=== PATIENT | female | born 1945 | race African-American/Black ===

== ENCOUNTER 2017-04-21 19:05 | Inpatient (IN) ==
[2017-04-21] MEDS ORDERED: ONDANSETRON 4 MG/2 ML VIAL IV STA (19:51)
[2017-04-21] MEDS ORDERED: hydrALAZINE 20 MG/1 ML VIAL IV STA (19:59)
[2017-04-21 20:39] LABS: Basophils % 0.3 % (0.0-0.8); Eosinophils # 0.1 10*3/uL (0.0-0.87); Eosinophils % 0.4 % (0.00-10.9); Hematocrit 39.4 VOL% (35.7-47.0); Hemoglobin 13.3 GM/DL (12.0-16.0); Immature Granulocytes % 0.6 %; Immature Granulocytes Absolute 0.07 #; Lymphocytes # 3.5 10*3/uL (1.4-4.0); Lymphocytes % 28.3 % (21.3-54.2); Mean Corpuscular HGB Conc 33.8 GM/DL (32-36); Mean Corpuscular Hemoglobin 29 PG (27-34); Mean Corpuscular Volume 84.7 FL (87-102); Monocytes # 0.8 10*3/uL (0.11-0.8); Monocytes % 6.1 % (1.7-12.7); Neutrophils # 7.9 10*3/uL (1.4-7.4); Neutrophils % 64.3 % (38.7-73.9); Platelet Count 344 T/CUMM (130-400); Red Blood Count 4.65 MC/CUMM (3.8-5.5); Red Cell Distribution Width 13.2 % (9.3-17.3); White Blood Count 12.4 T/CUMM (4-12)
[2017-04-21] MEDS ORDERED: ONDANSETRON 4 MG/2 ML VIAL ONE (20:47)
[2017-04-21] MEDS ORDERED: hydrALAZINE 20 MG/1 ML VIAL ONE (20:47)
[2017-04-21 20:57] LABS: INR 0.9; PT Patient Result 9.6 SECS; Partial Thromboplastin Time 22.6 SECS (0-40)
[2017-04-21 20:58] LABS: Alanine Aminotransferase 18 U/L (13-56); Alkaline Phosphatase 180 U/L (45-117); Aspartate Amino Transferase 11 U/L (0-37); Bilirubin,Total < 0.39 MG/DL (0.2-1.0); Blood Urea Nitrogen 20 MG/DL (7-18); Calcium 9.2 MG/DL (8.5-10.1); Glucose 462 MG/DL (74-106); Osmolality,Calculated 288.4 MOS/KG (273-304); Potassium 4.4 MMOL/L (3.5-5.1); Sodium 133 MMOL/L (136-145)
[2017-04-21] MEDS ORDERED: INSULIN REGULAR 100 UNIT/ML SUBCUT STA (21:21)
[2017-04-21] MEDS ORDERED: INSULIN REGULAR 100 UNIT/ML ONE (22:33)
[2017-04-21] MEDS ORDERED: DEXTROSE 50% 25 GM/50 ML VIAL IV PRN ×2 (23:50→23:56)
[2017-04-21] MEDS ORDERED: LABETALOL 20 MG/4 ML SYRINGE IV PRN (23:50)
[2017-04-21] MEDS ORDERED: GLUCAGON 1 MG VIAL IM PRN ×2 (23:50→23:56)
[2017-04-22] MEDS ORDERED: GLUCAGON 1 MG VIAL IM PRN (01:48)
[2017-04-22] MEDS ORDERED: DEXTROSE 50% 25 GM/50 ML VIAL IV PRN (01:48)
[2017-04-22] MEDS: SODIUM CHLORIDE 0.9% 1,000 ML IV SCH ×3 (03:09→15:14)
[2017-04-22 05:30] LABS: Calcium 8.8 MG/DL (8.5-10.1); Osmolality,Calculated 287.7 MOS/KG (273-304); Potassium 4.2 MMOL/L (3.5-5.1)
[2017-04-22 05:49] LABS: Risk Ratio 4.86; VLDL CHOLESTEROL 40.6 MG/DL
[2017-04-22] MEDS: INSULIN REGULAR 100 UNIT/ML SUBCUT SCH ×4 (06:50→22:19)
[2017-04-22] MEDS: ENOXAPARIN 40 MG/0.4 ML SYRINGE SUBCUT SCH (10:31)
[2017-04-22] MEDS: ASPIRIN 325 MG TABLET PO SCH (10:31)
[2017-04-22] MEDS: INSULIN LISPRO 100 UNIT/ML SUBCUT SCH (17:09)
[2017-04-22] MEDS ORDERED: IBUPROFEN 600 MG TABLET PO PRN (19:49)
[2017-04-22] MEDS ORDERED: ATORVASTATIN 80 MG TABLET PO SCH (21:00)
[2017-04-22] MEDS ORDERED: INSULIN GLARGINE 100 UNIT/ML SUBCUT SCH (21:00)
[2017-04-23] MEDS: SODIUM CHLORIDE 0.9% 1,000 ML IV SCH ×2 (04:26→10:49)
[2017-04-23] MEDS: INSULIN REGULAR 100 UNIT/ML SUBCUT SCH ×2 (08:40→12:08)
[2017-04-23] MEDS: ENOXAPARIN 40 MG/0.4 ML SYRINGE SUBCUT SCH (09:15)
[2017-04-23] MEDS: ASPIRIN 325 MG TABLET PO SCH (09:16)
[2017-04-23] MEDS: INSULIN LISPRO 100 UNIT/ML SUBCUT SCH ×2 (09:16→11:58)
[2017-04-23 11:37] VITALS: BP 164/82
[2017-04-23] MEDS ORDERED: MAGNESIUM HYDROXIDE SUSP 30 ML UDCUP PO PRN (11:46)
[2017-04-23] MEDS ORDERED: amLODIPine 10 MG TABLET PO SCH (13:00)
== END 2017-04-23 13:56 | DRG 65 ==
LOC: N.ED 19:05 → N.EDINP 23:50 → N.TELES 04-22 00:17
PROVIDERS: ADMIT Internal Medicine; ATTEND Internal Medicine

== ENCOUNTER 2017-08-04 13:01 | Inpatient (IN) ==
[2017-08-04] MEDS ORDERED: HYDROmorphone 2 MG/1 ML VIAL IV STA (14:08)
[2017-08-04] MEDS ORDERED: ONDANSETRON 4 MG/2 ML VIAL IV STA (14:08)
[2017-08-04] MEDS ORDERED: ALUM/MAG/SIMETH/LIDO VISC 1:1 30 ML BOTTLE PO STA (14:08)
[2017-08-04] MEDS ORDERED: SODIUM CHLORIDE 0.9% 500 ML IV STA (14:08)
[2017-08-04] MEDS ORDERED: PANTOPRAZOLE 40 MG VIAL IV STA (14:08)
[2017-08-04 14:23] LABS: Basophils % 0.3 % (0.0-0.8); Eosinophils % 0.4 % (0.00-10.9); Immature Granulocytes % 0.6 %; Immature Granulocytes Absolute 0.04 #; Lymphocytes # 2.1 10*3/uL (1.4-4.0); Lymphocytes % 29.7 % (21.3-54.2); Mean Corpuscular HGB Conc 33.3 GM/DL (32-36); Mean Corpuscular Hemoglobin 29 PG (27-34); Mean Corpuscular Volume 87.8 FL (87-102); Mean Platelet Volume 9.8 FL (9.6-12.0); Monocytes # 0.6 10*3/uL (0.11-0.8); Monocytes % 8.1 % (1.7-12.7); Neutrophils # 4.3 10*3/uL (1.4-7.4); Neutrophils % 60.9 % (38.7-73.9); Platelet Count 365 T/CUMM (130-400); Red Cell Distribution Width 15.1 % (9.3-17.3); White Blood Count 7.1 T/CUMM (4-12)
[2017-08-04] MEDS ORDERED: HYDROmorphone 2 MG/1 ML VIAL ONE (14:45)
[2017-08-04] MEDS ORDERED: PANTOPRAZOLE 40 MG VIAL IV ONE (14:45)
[2017-08-04] MEDS ORDERED: ONDANSETRON 4 MG/2 ML VIAL ONE (14:45)
[2017-08-04] MEDS ORDERED: ALUM/MAG/SIMETH/LIDO VISC 1:1 30 ML BOTTLE PO ONE (14:45)
[2017-08-04 14:47] LABS: Alanine Aminotransferase 16 U/L (13-56); Albumin 3.5 G/DL (3.4-5.0); Alkaline Phosphatase 136 U/L (45-117); Amylase 40 U/L (25-115); Aspartate Amino Transferase 18 U/L (0-37); Bilirubin,Total < 0.39 MG/DL (0.2-1.0); Blood Urea Nitrogen 12 MG/DL (7-18); Calcium 8.9 MG/DL (8.5-10.1); Glucose 232 MG/DL (74-106); Osmolality,Calculated 279.8 MOS/KG (273-304); Potassium 3.7 MMOL/L (3.5-5.1); Sodium 137 MMOL/L (136-145); Total Protein 7.2 G/DL (6.4-8.3); Troponin I Only < 0.015 NG/ML (0.00-0.045)
[2017-08-04 16:39] LABS: Apearance,Urine CLEAR (Clear); Bilirubin,Urine Negative (Negative); Blood, Urine Negative (Negative); Glucose,Urine (UA) 150 mg/dL (Negative); Ketones,Urine Negative (Negative); Nitrite,Urine Negative (Negative); Protein,Urine 100 MG/DL; RBC,Urine 4 /HPF (0-4); Squamous Epithelial Cell,Urine Occasional /HPF (0-10); Urine Color Yellow (Yellow); Urine Specific Gravity 1.011 (1.001-1.035); Urine Urobilinogen < 2.0 EU/DL (0.2-1.0); WBC,Urine 7 /HPF (0-6)
[2017-08-04] MEDS ORDERED: cefTRIAXone 1,000 MG in SODIUM CHLORIDE 0.9% 100 ML IV STA (17:12)
[2017-08-04] MEDS ORDERED: cefTRIAXone 1,000 MG in SYRINGE 1 EACH IV STA (17:16)
[2017-08-04] MEDS ORDERED: cefTRIAXone 1,000 MG VIAL ONE (17:18)
[2017-08-04] MEDS ORDERED: ASPIRIN EC 325 MG TABLET PO STA (17:32)
[2017-08-04] MEDS ORDERED: ASPIRIN 325 MG TABLET ONE (17:58)
[2017-08-04] MEDS ORDERED: GLUCAGON 1 MG VIAL IM PRN (18:37)
[2017-08-04] MEDS ORDERED: DEXTROSE 50% 25 GM/50 ML VIAL IV PRN (18:37)
[2017-08-04 18:39] LABS: Lactic Acid 0.9 MMOL/L (0.4-2.0)
[2017-08-04] MEDS: SODIUM CHLORIDE 0.9% 1,000 ML IV SCH (21:00)
[2017-08-04] MEDS: INSULIN REGULAR 100 UNIT/ML SUBCUT SCH (21:14)
[2017-08-04] MEDS ORDERED: LEVOFLOXACIN INJ 100 ML IV ONE (21:32)
[2017-08-04] MEDS: LEVOFLOXACIN INJ 500 MG in PREMIX 1 EACH IV SCH (21:41)
[2017-08-04] MEDS: TOLTERODINE 2 MG TABLET PO SCH (22:15)
[2017-08-05] MEDS ORDERED: ONDANSETRON 4 MG/2 ML VIAL IV PRN (01:44)
[2017-08-05] MEDS ORDERED: PROMETHAZINE 25 MG/1 ML VIAL IM PRN (01:44)
[2017-08-05] MEDS ORDERED: ONDANSETRON 4 MG/2 ML VIAL ONE (01:50)
[2017-08-05] MEDS ORDERED: MORPHINE 10 MG/1 ML VIAL ONE ×2 (01:53→08:56)
[2017-08-05] MEDS: MORPHINE 2 MG/1 ML SYRINGE IV PRN ×2 (02:09→09:15)
[2017-08-05] MEDS ORDERED: INSULIN REGULAR 100 UNIT/ML ONE (08:57)
[2017-08-05] MEDS: TOLTERODINE 2 MG TABLET PO SCH ×2 (09:15→21:21)
[2017-08-05] MEDS: INSULIN REGULAR 100 UNIT/ML SUBCUT SCH ×4 (09:15→21:21)
[2017-08-05] MEDS ORDERED: ALPRAZolam 0.5 MG TABLET ONE (10:22)
[2017-08-05] MEDS: ALPRAZolam 0.5 MG TABLET PO PRN ×2 (10:25→21:21)
[2017-08-05] MEDS ORDERED: POLYETHYLENE GLYCOL POWDER 17 GM PACK PO PRN (10:25)
[2017-08-05] MEDS ORDERED: ALUMINUM/MAGNES/SIMETH MAX STR 30 ML UDCUP PO PRN (10:25)
[2017-08-05] MEDS: INSULIN LISPRO 100 UNIT/ML SUBCUT SCH ×2 (13:53→17:06)
[2017-08-05] MEDS: SODIUM CHLORIDE 0.9% 1,000 ML IV SCH (13:54)
[2017-08-05] MEDS: PANTOPRAZOLE 20 MG TABLET PO SCH (18:23)
[2017-08-05] MEDS: LEVOFLOXACIN INJ 500 MG in PREMIX 1 EACH IV SCH (18:23)
[2017-08-05] MEDS: ZALEPLON 5 MG CAPSULE PO SCH (21:21)
[2017-08-05] MEDS: ATORVASTATIN 80 MG TABLET PO SCH (21:21)
[2017-08-05] MEDS: INSULIN GLARGINE 100 UNIT/ML SUBCUT SCH (21:22)
[2017-08-06] MEDS: LEVOTHYROXINE 125 MCG TABLET PO SCH (08:36)
[2017-08-06] MEDS: INSULIN REGULAR 100 UNIT/ML SUBCUT SCH ×4 (08:36→22:41)
[2017-08-06] MEDS: INSULIN LISPRO 100 UNIT/ML SUBCUT SCH ×3 (08:36→16:53)
[2017-08-06] MEDS: POLYETHYLENE GLYCOL POWDER 17 GM PACK PO SCH (08:37)
[2017-08-06] MEDS: ASPIRIN 325 MG TABLET PO SCH (08:37)
[2017-08-06] MEDS: TOLTERODINE 2 MG TABLET PO SCH ×2 (08:37→21:38)
[2017-08-06] MEDS: amLODIPine 10 MG TABLET PO SCH (08:45)
[2017-08-06] MEDS: ALPRAZolam 0.5 MG TABLET PO PRN ×2 (08:47→21:38)
[2017-08-06] MEDS ORDERED: LEVOFLOXACIN 500 MG TABLET PO SCH (16:30)
[2017-08-06] MEDS: PANTOPRAZOLE 20 MG TABLET PO SCH (16:53)
[2017-08-06 17:47] LABS: Apearance,Urine CLEAR (Clear); Bilirubin,Urine Negative (Negative); Blood, Urine Negative (Negative); Glucose,Urine (UA) Negative (Negative); Ketones,Urine Negative (Negative); Mucus,Urine Occasional /LPF (Occasional); Nitrite,Urine Negative (Negative); Protein,Urine 100 MG/DL; RBC,Urine 3 /HPF (0-4); Squamous Epithelial Cell,Urine Occasional /HPF (0-10); Urine Color Yellow (Yellow); Urine Specific Gravity 1.011 (1.001-1.035); Urine Urobilinogen < 2.0 EU/DL (0.2-1.0); WBC,Urine <1 /HPF (0-6)
[2017-08-06] MEDS: ATORVASTATIN 80 MG TABLET PO SCH (21:38)
[2017-08-06] MEDS: ZALEPLON 5 MG CAPSULE PO SCH (21:38)
[2017-08-06] MEDS: INSULIN GLARGINE 100 UNIT/ML SUBCUT SCH (22:41)
[2017-08-07] MEDS: LEVOTHYROXINE 125 MCG TABLET PO SCH (06:58)
[2017-08-07] MEDS: INSULIN REGULAR 100 UNIT/ML SUBCUT SCH ×4 (08:41→21:07)
[2017-08-07] MEDS: ASPIRIN 325 MG TABLET PO SCH (10:20)
[2017-08-07] MEDS: TOLTERODINE 2 MG TABLET PO SCH (10:20)
[2017-08-07] MEDS: amLODIPine 10 MG TABLET PO SCH (10:20)
[2017-08-07] MEDS: INSULIN LISPRO 100 UNIT/ML SUBCUT SCH ×3 (10:21→16:19)
[2017-08-07] MEDS: POLYETHYLENE GLYCOL POWDER 17 GM PACK PO SCH (10:21)
[2017-08-07] MEDS: CITALOPRAM 20 MG TABLET PO SCH (10:24)
[2017-08-07] MEDS: MORPHINE 2 MG/1 ML SYRINGE IV PRN (13:30)
[2017-08-07] MEDS: PANTOPRAZOLE 20 MG TABLET PO SCH (17:31)
[2017-08-07] MEDS ORDERED: TAMSULOSIN 0.4 MG CAPSULE PO SCH (21:00)
[2017-08-07] MEDS: INSULIN GLARGINE 100 UNIT/ML SUBCUT SCH (21:07)
[2017-08-07] MEDS: ATORVASTATIN 80 MG TABLET PO SCH (21:07)
[2017-08-07] MEDS: ALPRAZolam 0.5 MG TABLET PO PRN (21:07)
[2017-08-07] MEDS: ZALEPLON 5 MG CAPSULE PO SCH (21:07)
[2017-08-08 05:28] LABS: Calcium 8.7 MG/DL (8.5-10.1); Osmolality,Calculated 278.4 MOS/KG (273-304); Potassium 3.7 MMOL/L (3.5-5.1)
[2017-08-08] MEDS: LEVOTHYROXINE 125 MCG TABLET PO SCH (06:37)
[2017-08-08] MEDS: INSULIN REGULAR 100 UNIT/ML SUBCUT SCH ×2 (09:33→12:26)
[2017-08-08] MEDS: amLODIPine 10 MG TABLET PO SCH (09:34)
[2017-08-08] MEDS: POLYETHYLENE GLYCOL POWDER 17 GM PACK PO SCH (09:34)
[2017-08-08] MEDS: INSULIN LISPRO 100 UNIT/ML SUBCUT SCH ×2 (09:34→12:25)
[2017-08-08] MEDS: ASPIRIN 325 MG TABLET PO SCH (09:34)
[2017-08-08] MEDS: CITALOPRAM 20 MG TABLET PO SCH (09:34)
[2017-08-08 12:03] VITALS: BP 153/63
[2017-08-08] MEDS ORDERED: DOCUSATE SODIUM 100 MG CAPSULE PO SCH (21:00)
== END 2017-08-08 15:15 | disposition home health service (06) | DRG 445 ==
LOC: EDBD → EDUNIT# → N.ED 13:01 → N.EDINP 17:59 → N.TELES 08-05 12:04
PROVIDERS: ADMIT Internal Medicine Cardiovascular Disease; ATTEND Internal Medicine Cardiovascular Disease

== ENCOUNTER 2017-11-28 11:35 | Inpatient (IN) ==
[2017-11-28 12:06] LABS: Basophils % 0.2 % (0.0-0.8); Eosinophils % 0.1 % (0.00-10.9); Hematocrit 37.7 VOL% (35.7-47.0); Hemoglobin 12.4 GM/DL (12.0-16.0); Immature Granulocytes % 0.4 %; Immature Granulocytes Absolute 0.04 #; Lymphocytes # 1.5 10*3/uL (1.4-4.0); Lymphocytes % 13.6 % (21.3-54.2); Mean Corpuscular HGB Conc 32.9 GM/DL (32-36); Mean Corpuscular Hemoglobin 29 PG (27-34); Mean Corpuscular Volume 88.1 FL (87-102); Mean Platelet Volume 9.2 FL (9.6-12.0); Monocytes # 0.4 10*3/uL (0.11-0.8); Monocytes % 3.8 % (1.7-12.7); Neutrophils % 81.9 % (38.7-73.9); Platelet Count 426 T/CUMM (130-400); Red Blood Count 4.28 MC/CUMM (3.8-5.5); Red Cell Distribution Width 13.4 % (9.3-17.3); White Blood Count 10.9 T/CUMM (4-12)
[2017-11-28 12:21] LABS: INR 0.9; PT Patient Result 9.8 SECS; Partial Thromboplastin Time 27.8 SECS (0-40)
[2017-11-28 12:55] LABS: Alanine Aminotransferase 21 U/L (13-56); Albumin 3.3 G/DL (3.4-5.0); Alkaline Phosphatase 167 U/L (45-117); Amylase 32 U/L (25-115); Aspartate Amino Transferase 78 U/L (0-37); Bilirubin,Total < 0.39 MG/DL (0.2-1.0); Blood Urea Nitrogen 11 MG/DL (7-18); Calcium 9.5 MG/DL (8.5-10.1); Glucose 236 MG/DL (74-106); Osmolality,Calculated 283.5 MOS/KG (273-304); Potassium 3.3 MMOL/L (3.5-5.1); Sodium 139 MMOL/L (136-145); Total Protein 8.4 G/DL (6.4-8.3)
[2017-11-28] MEDS ORDERED: diphenhydrAMINE CAP 25 MG CAPSULE PO ONE (14:03)
[2017-11-28] MEDS ORDERED: DIAZEPAM 5 MG TABLET PO ONE (14:03)
[2017-11-28] MEDS ORDERED: HEPARIN/NACL 0.9% 2 UNITS/ML 1,000 ML IV ONE (14:12)
[2017-11-28] MEDS ORDERED: fentaNYL 100 MCG/2 ML VIAL ONE (14:25)
[2017-11-28] MEDS ORDERED: MIDAZOLAM 2 MG/2 ML VIAL ONE (14:25)
[2017-11-28] MEDS ORDERED: ASPIRIN 325 MG TABLET ONE (14:29)
[2017-11-28] MEDS ORDERED: METOPROLOL TARTRATE 5 MG/5 ML VIAL IV ONE (14:30)
[2017-11-28] MEDS ORDERED: SODIUM CHLORIDE 0.45% 1,000 ML IV SCH (14:30)
[2017-11-28] MEDS ORDERED: BIVALIRUDIN 250 MG VIAL IV ONE (14:45)
[2017-11-28] MEDS ORDERED: BIVALIRUDIN 250 MG in SODIUM CHLORIDE 0.9% 50 ML IV SCH (15:00)
[2017-11-28] MEDS ORDERED: NITROGLYCERIN DRIP 50 MG/250 ML BOTTLE IV ONE (15:02)
[2017-11-28] MEDS ORDERED: TICAGRELOR 90 MG TABLET ONE (15:13)
[2017-11-28] MEDS ORDERED: GLUCAGON 1 MG VIAL IM PRN (15:24)
[2017-11-28] MEDS ORDERED: POLYETHYLENE GLYCOL POWDER 17 GM PACK PO PRN (15:26)
[2017-11-28] MEDS ORDERED: hydrALAZINE 20 MG/1 ML VIAL IV PRN (15:27)
[2017-11-28] MEDS ORDERED: NITROGLYCERIN SL 0.4 MG TABLET SL PRN (15:52)
[2017-11-28] MEDS: INSULIN REGULAR 100 UNIT/ML SUBCUT SCH ×2 (17:29→22:51)
[2017-11-28] MEDS: INSULIN LISPRO 100 UNIT/ML SUBCUT SCH (17:35)
[2017-11-28] MEDS: CARVEDILOL 3.125 MG TABLET PO SCH (20:13)
[2017-11-28] MEDS: ZALEPLON 5 MG CAPSULE PO SCH (20:13)
[2017-11-28] MEDS: DOCUSATE SODIUM 100 MG CAPSULE PO SCH (20:13)
[2017-11-28] MEDS: ATORVASTATIN 40 MG TABLET PO SCH (20:13)
[2017-11-28] MEDS: ALPRAZolam 0.5 MG TABLET PO PRN (20:13)
[2017-11-28] MEDS: TICAGRELOR 90 MG TABLET PO SCH (20:13)
[2017-11-28] MEDS: INSULIN GLARGINE 100 UNIT/ML SUBCUT SCH (20:42)
[2017-11-28] MEDS: NON-FORMULARY MEDICATION (Cranberry Conc/C/Bacill Coag [Cranberry Tablet] 1 EACH) PO SCH (20:42)
[2017-11-28] MEDS ORDERED: ACETAMINOPHEN/CODEINE 300-30 MG TABLET PO PRN (22:14)
[2017-11-28] MEDS ORDERED: MORPHINE 4 MG/1 ML VIAL IV PRN (22:14)
[2017-11-28] MEDS: DEXTROSE 50% 25 GM/50 ML VIAL IV PRN (23:01)
[2017-11-29] MEDS: LEVOTHYROXINE 125 MCG TABLET PO SCH (05:48)
[2017-11-29] MEDS: INSULIN LISPRO 100 UNIT/ML SUBCUT SCH ×3 (07:23→16:29)
[2017-11-29] MEDS: INSULIN REGULAR 100 UNIT/ML SUBCUT SCH ×3 (07:23→16:30)
[2017-11-29] MEDS ORDERED: BISACODYL 5 MG TABLET PO PRN (07:35)
[2017-11-29] MEDS ORDERED: BISACODYL 10 MG SUPP RECTAL PRN (07:35)
[2017-11-29 08:02] LABS: Basophils % 0.3 % (0.0-0.8); Eosinophils # 0.1 10*3/uL (0.0-0.87); Eosinophils % 1.2 % (0.00-10.9); Hematocrit 33.6 VOL% (35.7-47.0); Immature Granulocytes % 0.3 %; Immature Granulocytes Absolute 0.03 #; Lymphocytes # 2.5 10*3/uL (1.4-4.0); Lymphocytes % 24.8 % (21.3-54.2); Mean Corpuscular HGB Conc 32.7 GM/DL (32-36); Mean Corpuscular Hemoglobin 29 PG (27-34); Mean Corpuscular Volume 88.4 FL (87-102); Mean Platelet Volume 9.5 FL (9.6-12.0); Monocytes # 1.1 10*3/uL (0.11-0.8); Monocytes % 10.6 % (1.7-12.7); Neutrophils # 6.2 10*3/uL (1.4-7.4); Neutrophils % 62.8 % (38.7-73.9); Platelet Count 356 T/CUMM (130-400); Red Cell Distribution Width 13.4 % (9.3-17.3); White Blood Count 9.9 T/CUMM (4-12)
[2017-11-29 08:29] LABS: Calcium 9.3 MG/DL (8.5-10.1); Osmolality,Calculated 278.4 MOS/KG (273-304); Potassium 2.8 MMOL/L (3.5-5.1)
[2017-11-29] MEDS ORDERED: amLODIPine 10 MG TABLET PO SCH (09:00)
[2017-11-29] MEDS: TICAGRELOR 90 MG TABLET PO SCH ×2 (09:49→21:17)
[2017-11-29] MEDS: CARVEDILOL 3.125 MG TABLET PO SCH ×2 (09:49→21:17)
[2017-11-29] MEDS: PANTOPRAZOLE 40 MG TABLET PO SCH (09:49)
[2017-11-29] MEDS: POTASSIUM CHLORIDE 20 MEQ TABLET PO SCH ×5 (09:49→16:28)
[2017-11-29] MEDS: CITALOPRAM 20 MG TABLET PO SCH (09:49)
[2017-11-29] MEDS: DOCUSATE SODIUM 100 MG CAPSULE PO SCH ×2 (09:49→21:16)
[2017-11-29] MEDS: TAMSULOSIN 0.4 MG CAPSULE PO SCH (09:49)
[2017-11-29] MEDS: ISOSORBIDE MONONITRATE 30 MG TABLET PO SCH (09:49)
[2017-11-29] MEDS: ASPIRIN EC 81 MG TABLET PO SCH (09:49)
[2017-11-29] MEDS: LOSARTAN 25 MG TABLET PO SCH (09:49)
[2017-11-29] MEDS: NON-FORMULARY MEDICATION (Cranberry Conc/C/Bacill Coag [Cranberry Tablet] 1 EACH) PO SCH (09:50)
[2017-11-29] MEDS: POLYETHYLENE GLYCOL POWDER 17 GM PACK PO SCH (09:50)
[2017-11-29] MEDS: SPIRONOLACTONE 25 MG TABLET PO SCH (13:11)
[2017-11-29] MEDS: MAGNESIUM OXIDE 400 MG TABLET PO SCH ×2 (14:57→21:16)
[2017-11-29] MEDS: ATORVASTATIN 40 MG TABLET PO SCH (21:16)
[2017-11-29] MEDS: ZALEPLON 5 MG CAPSULE PO SCH (21:16)
[2017-11-30] MEDS: NON-FORMULARY MEDICATION (Cranberry Conc/C/Bacill Coag [Cranberry Tablet] 1 EACH) PO SCH ×2 (00:58→09:07)
[2017-11-30] MEDS: INSULIN REGULAR 100 UNIT/ML SUBCUT SCH ×4 (00:58→17:26)
[2017-11-30] MEDS: INSULIN GLARGINE 100 UNIT/ML SUBCUT SCH ×2 (00:58→21:18)
[2017-11-30] MEDS: ALPRAZolam 0.5 MG TABLET PO PRN (01:25)
[2017-11-30] MEDS: ACETAMINOPHEN 325 MG TABLET PO PRN ×2 (01:25→09:09)
[2017-11-30 04:15] LABS: Basophils % 0.2 % (0.0-0.8); Eosinophils # 0.1 10*3/uL (0.0-0.87); Eosinophils % 0.9 % (0.00-10.9); Hematocrit 29.7 VOL% (35.7-47.0); Hemoglobin 9.6 GM/DL (12.0-16.0); Immature Granulocytes % 0.3 %; Immature Granulocytes Absolute 0.04 #; Lymphocytes # 2.4 10*3/uL (1.4-4.0); Lymphocytes % 20.5 % (21.3-54.2); Mean Corpuscular HGB Conc 32.3 GM/DL (32-36); Mean Corpuscular Hemoglobin 29 PG (27-34); Mean Corpuscular Volume 89.7 FL (87-102); Mean Platelet Volume 9.4 FL (9.6-12.0); Monocytes # 1.1 10*3/uL (0.11-0.8); Neutrophils # 7.8 10*3/uL (1.4-7.4); Neutrophils % 68.1 % (38.7-73.9); Platelet Count 327 T/CUMM (130-400); Red Blood Count 3.31 MC/CUMM (3.8-5.5); Red Cell Distribution Width 13.6 % (9.3-17.3); White Blood Count 11.4 T/CUMM (4-12)
[2017-11-30 04:47] LABS: Calcium 8.7 MG/DL (8.5-10.1); Osmolality,Calculated 279.5 MOS/KG (273-304); Potassium 4.7 MMOL/L (3.5-5.1)
[2017-11-30] MEDS: LEVOTHYROXINE 125 MCG TABLET PO SCH (06:50)
[2017-11-30] MEDS: INSULIN LISPRO 100 UNIT/ML SUBCUT SCH ×3 (09:04→17:12)
[2017-11-30] MEDS: CITALOPRAM 20 MG TABLET PO SCH (09:05)
[2017-11-30] MEDS: POLYETHYLENE GLYCOL POWDER 17 GM PACK PO SCH (09:05)
[2017-11-30] MEDS: DOCUSATE SODIUM 100 MG CAPSULE PO SCH ×2 (09:06→21:19)
[2017-11-30] MEDS: ASPIRIN EC 81 MG TABLET PO SCH (09:06)
[2017-11-30] MEDS: LOSARTAN 25 MG TABLET PO SCH (09:06)
[2017-11-30] MEDS: PANTOPRAZOLE 40 MG TABLET PO SCH (09:06)
[2017-11-30] MEDS: TICAGRELOR 90 MG TABLET PO SCH ×2 (09:06→21:19)
[2017-11-30] MEDS: TAMSULOSIN 0.4 MG CAPSULE PO SCH (09:06)
[2017-11-30] MEDS: ISOSORBIDE MONONITRATE 30 MG TABLET PO SCH (09:06)
[2017-11-30] MEDS: CARVEDILOL 3.125 MG TABLET PO SCH ×2 (09:06→21:19)
[2017-11-30] MEDS: MAGNESIUM OXIDE 400 MG TABLET PO SCH ×2 (09:06→21:19)
[2017-11-30] MEDS: SPIRONOLACTONE 25 MG TABLET PO SCH (09:07)
[2017-11-30] MEDS: ZALEPLON 5 MG CAPSULE PO SCH (21:19)
[2017-11-30] MEDS: ATORVASTATIN 40 MG TABLET PO SCH (21:23)
[2017-12-01] MEDS: NON-FORMULARY MEDICATION (Cranberry Conc/C/Bacill Coag [Cranberry Tablet] 1 EACH) PO SCH ×3 (00:35→21:41)
[2017-12-01] MEDS: INSULIN REGULAR 100 UNIT/ML SUBCUT SCH ×5 (00:35→22:17)
[2017-12-01 05:53] LABS: Basophils % 0.2 % (0.0-0.8); Eosinophils # 0.2 10*3/uL (0.0-0.87); Eosinophils % 1.7 % (0.00-10.9); Hematocrit 28.5 VOL% (35.7-47.0); Immature Granulocytes % 0.2 %; Immature Granulocytes Absolute 0.02 #; Lymphocytes # 2.3 10*3/uL (1.4-4.0); Lymphocytes % 26.3 % (21.3-54.2); Mean Corpuscular HGB Conc 31.6 GM/DL (32-36); Mean Corpuscular Hemoglobin 28 PG (27-34); Mean Corpuscular Volume 88.8 FL (87-102); Mean Platelet Volume 9.3 FL (9.6-12.0); Monocytes # 0.9 10*3/uL (0.11-0.8); Monocytes % 9.6 % (1.7-12.7); Neutrophils # 5.5 10*3/uL (1.4-7.4); Platelet Count 343 T/CUMM (130-400); Red Blood Count 3.21 MC/CUMM (3.8-5.5); Red Cell Distribution Width 13.6 % (9.3-17.3); White Blood Count 8.9 T/CUMM (4-12)
[2017-12-01 06:05] LABS: Calcium 8.9 MG/DL (8.5-10.1); Osmolality,Calculated 277.7 MOS/KG (273-304)
[2017-12-01] MEDS: LEVOTHYROXINE 125 MCG TABLET PO SCH (06:35)
[2017-12-01] MEDS: ALPRAZolam 0.5 MG TABLET PO PRN (06:35)
[2017-12-01] MEDS ORDERED: BISACODYL 5 MG TABLET PO ONE (07:01)
[2017-12-01] MEDS: INSULIN LISPRO 100 UNIT/ML SUBCUT SCH ×3 (08:30→16:07)
[2017-12-01] MEDS: POLYETHYLENE GLYCOL POWDER 17 GM PACK PO SCH (08:48)
[2017-12-01] MEDS: DOCUSATE SODIUM 100 MG CAPSULE PO SCH ×2 (08:50→21:06)
[2017-12-01] MEDS: CARVEDILOL 3.125 MG TABLET PO SCH ×2 (08:50→21:26)
[2017-12-01] MEDS: MAGNESIUM OXIDE 400 MG TABLET PO SCH ×2 (08:50→21:05)
[2017-12-01] MEDS: PANTOPRAZOLE 40 MG TABLET PO SCH (08:50)
[2017-12-01] MEDS: LOSARTAN 25 MG TABLET PO SCH (08:50)
[2017-12-01] MEDS: SPIRONOLACTONE 25 MG TABLET PO SCH (08:51)
[2017-12-01] MEDS: TICAGRELOR 90 MG TABLET PO SCH ×2 (08:51→21:05)
[2017-12-01] MEDS: ISOSORBIDE MONONITRATE 30 MG TABLET PO SCH (08:51)
[2017-12-01] MEDS: TAMSULOSIN 0.4 MG CAPSULE PO SCH (08:51)
[2017-12-01] MEDS: ASPIRIN EC 81 MG TABLET PO SCH (08:51)
[2017-12-01] MEDS: CITALOPRAM 20 MG TABLET PO SCH (08:51)
[2017-12-01] MEDS: ATORVASTATIN 40 MG TABLET PO SCH (21:05)
[2017-12-01] MEDS: ACETAMINOPHEN 325 MG TABLET PO PRN (21:05)
[2017-12-01] MEDS: INSULIN GLARGINE 100 UNIT/ML SUBCUT SCH (21:06)
[2017-12-01] MEDS: ZALEPLON 5 MG CAPSULE PO SCH (21:06)
[2017-12-02 05:00] LABS: Basophils % 0.3 % (0.0-0.8); Eosinophils # 0.1 10*3/uL (0.0-0.87); Eosinophils % 1.5 % (0.00-10.9); Hematocrit 27.9 VOL% (35.7-47.0); Hemoglobin 9.2 GM/DL (12.0-16.0); Immature Granulocytes % 0.3 %; Immature Granulocytes Absolute 0.02 #; Lymphocytes % 25.9 % (21.3-54.2); Mean Corpuscular Hemoglobin 29 PG (27-34); Mean Corpuscular Volume 87.5 FL (87-102); Mean Platelet Volume 9.7 FL (9.6-12.0); Monocytes # 0.8 10*3/uL (0.11-0.8); Monocytes % 10.3 % (1.7-12.7); Neutrophils # 4.7 10*3/uL (1.4-7.4); Neutrophils % 61.7 % (38.7-73.9); Platelet Count 360 T/CUMM (130-400); Red Blood Count 3.19 MC/CUMM (3.8-5.5); Red Cell Distribution Width 13.7 % (9.3-17.3); White Blood Count 7.5 T/CUMM (4-12)
[2017-12-02 05:18] LABS: Calcium 8.9 MG/DL (8.5-10.1); Osmolality,Calculated 275.8 MOS/KG (273-304); Potassium 4.7 MMOL/L (3.5-5.1)
[2017-12-02] MEDS: ALPRAZolam 0.5 MG TABLET PO PRN ×2 (05:41→21:30)
[2017-12-02] MEDS: LEVOTHYROXINE 125 MCG TABLET PO SCH (05:41)
[2017-12-02] MEDS: INSULIN REGULAR 100 UNIT/ML SUBCUT SCH ×4 (07:42→22:21)
[2017-12-02] MEDS: INSULIN LISPRO 100 UNIT/ML SUBCUT SCH ×3 (07:43→17:07)
[2017-12-02] MEDS: CITALOPRAM 20 MG TABLET PO SCH (08:21)
[2017-12-02] MEDS: MAGNESIUM OXIDE 400 MG TABLET PO SCH (08:22)
[2017-12-02] MEDS: CARVEDILOL 3.125 MG TABLET PO SCH ×2 (08:22→21:30)
[2017-12-02] MEDS: TICAGRELOR 90 MG TABLET PO SCH ×2 (08:22→21:30)
[2017-12-02] MEDS: PANTOPRAZOLE 40 MG TABLET PO SCH (08:22)
[2017-12-02] MEDS: ISOSORBIDE MONONITRATE 30 MG TABLET PO SCH (08:22)
[2017-12-02] MEDS: ASPIRIN EC 81 MG TABLET PO SCH (08:22)
[2017-12-02] MEDS: DOCUSATE SODIUM 100 MG CAPSULE PO SCH (08:23)
[2017-12-02] MEDS: POLYETHYLENE GLYCOL POWDER 17 GM PACK PO SCH (08:23)
[2017-12-02] MEDS: TAMSULOSIN 0.4 MG CAPSULE PO SCH (08:23)
[2017-12-02] MEDS: LOSARTAN 25 MG TABLET PO SCH (08:50)
[2017-12-02] MEDS: NON-FORMULARY MEDICATION (Cranberry Conc/C/Bacill Coag [Cranberry Tablet] 1 EACH) PO SCH ×2 (08:50→22:21)
[2017-12-02] MEDS: SPIRONOLACTONE 25 MG TABLET PO SCH (08:50)
[2017-12-02] MEDS ORDERED: LOPERAMIDE 2 MG CAPSULE PO PRN (11:26)
[2017-12-02] MEDS: SODIUM CHLORIDE 0.45% 1,000 ML IV SCH (13:03)
[2017-12-02] MEDS ORDERED: LOPERAMIDE 2 MG CAPSULE PO ONE (19:05)
[2017-12-02] MEDS ORDERED: POTASSIUM CHLORIDE 20 MEQ TABLET PO ONE (19:06)
[2017-12-02] MEDS: ATORVASTATIN 40 MG TABLET PO SCH (21:30)
[2017-12-02] MEDS: ACETAMINOPHEN 325 MG TABLET PO PRN (21:30)
[2017-12-02] MEDS: ZALEPLON 5 MG CAPSULE PO SCH (21:30)
[2017-12-02] MEDS: INSULIN GLARGINE 100 UNIT/ML SUBCUT SCH (22:22)
[2017-12-03] MEDS: ACETAMINOPHEN 325 MG TABLET PO PRN (03:10)
[2017-12-03 04:18] LABS: Basophils % 0.3 % (0.0-0.8); Eosinophils # 0.2 10*3/uL (0.0-0.87); Eosinophils % 1.9 % (0.00-10.9); Hematocrit 29.1 VOL% (35.7-47.0); Hemoglobin 9.3 GM/DL (12.0-16.0); Immature Granulocytes % 0.4 %; Immature Granulocytes Absolute 0.04 #; Lymphocytes % 28.7 % (21.3-54.2); Mean Corpuscular Hemoglobin 29 PG (27-34); Mean Corpuscular Volume 89.8 FL (87-102); Mean Platelet Volume 9.3 FL (9.6-12.0); Monocytes # 1.1 10*3/uL (0.11-0.8); Monocytes % 10.2 % (1.7-12.7); Neutrophils # 6.1 10*3/uL (1.4-7.4); Neutrophils % 58.5 % (38.7-73.9); Platelet Count 366 T/CUMM (130-400); Red Blood Count 3.24 MC/CUMM (3.8-5.5); Red Cell Distribution Width 13.8 % (9.3-17.3); White Blood Count 10.4 T/CUMM (4-12)
[2017-12-03] MEDS: ALPRAZolam 0.5 MG TABLET PO PRN (04:30)
[2017-12-03 04:45] LABS: Calcium 8.6 MG/DL (8.5-10.1); Potassium 4.9 MMOL/L (3.5-5.1)
[2017-12-03] MEDS: DEXTROSE 50% 25 GM/50 ML VIAL IV PRN (06:40)
[2017-12-03] MEDS: LEVOTHYROXINE 125 MCG TABLET PO SCH (06:45)
[2017-12-03] MEDS: INSULIN LISPRO 100 UNIT/ML SUBCUT SCH ×3 (09:34→16:16)
[2017-12-03] MEDS: INSULIN REGULAR 100 UNIT/ML SUBCUT SCH ×4 (09:34→20:51)
[2017-12-03] MEDS: SPIRONOLACTONE 25 MG TABLET PO SCH (09:35)
[2017-12-03] MEDS: TAMSULOSIN 0.4 MG CAPSULE PO SCH (09:35)
[2017-12-03] MEDS: CARVEDILOL 3.125 MG TABLET PO SCH ×2 (09:35→20:47)
[2017-12-03] MEDS: ISOSORBIDE MONONITRATE 30 MG TABLET PO SCH (09:35)
[2017-12-03] MEDS: TICAGRELOR 90 MG TABLET PO SCH ×2 (09:35→20:47)
[2017-12-03] MEDS: ASPIRIN EC 81 MG TABLET PO SCH (09:35)
[2017-12-03] MEDS: PANTOPRAZOLE 40 MG TABLET PO SCH (09:35)
[2017-12-03] MEDS: CITALOPRAM 20 MG TABLET PO SCH (09:35)
[2017-12-03] MEDS: NON-FORMULARY MEDICATION (Cranberry Conc/C/Bacill Coag [Cranberry Tablet] 1 EACH) PO SCH ×2 (09:39→20:47)
[2017-12-03] MEDS: POLYETHYLENE GLYCOL POWDER 17 GM PACK PO SCH (09:39)
[2017-12-03] MEDS: LOSARTAN 25 MG TABLET PO SCH (09:39)
[2017-12-03] MEDS: SODIUM CHLORIDE 0.45% 1,000 ML IV SCH (14:05)
[2017-12-03] MEDS: ATORVASTATIN 40 MG TABLET PO SCH (20:46)
[2017-12-03] MEDS: ZALEPLON 5 MG CAPSULE PO SCH (20:46)
[2017-12-03] MEDS: INSULIN GLARGINE 100 UNIT/ML SUBCUT SCH (20:47)
[2017-12-04] MEDS: SODIUM CHLORIDE 0.45% 1,000 ML IV SCH ×2 (04:47→13:38)
[2017-12-04] MEDS: LEVOTHYROXINE 125 MCG TABLET PO SCH (05:30)
[2017-12-04] MEDS: ACETAMINOPHEN 325 MG TABLET PO PRN (08:14)
[2017-12-04] MEDS: POLYETHYLENE GLYCOL POWDER 17 GM PACK PO SCH (08:15)
[2017-12-04] MEDS: CITALOPRAM 20 MG TABLET PO SCH (08:48)
[2017-12-04] MEDS: ISOSORBIDE MONONITRATE 30 MG TABLET PO SCH (08:48)
[2017-12-04] MEDS: TAMSULOSIN 0.4 MG CAPSULE PO SCH (08:48)
[2017-12-04] MEDS: SPIRONOLACTONE 25 MG TABLET PO SCH (08:48)
[2017-12-04] MEDS: TICAGRELOR 90 MG TABLET PO SCH (08:48)
[2017-12-04] MEDS: INSULIN REGULAR 100 UNIT/ML SUBCUT SCH ×2 (08:49→12:02)
[2017-12-04] MEDS: PANTOPRAZOLE 40 MG TABLET PO SCH (08:49)
[2017-12-04] MEDS: ASPIRIN EC 81 MG TABLET PO SCH (08:49)
[2017-12-04] MEDS: LOSARTAN 25 MG TABLET PO SCH (08:49)
[2017-12-04] MEDS: CARVEDILOL 3.125 MG TABLET PO SCH (08:49)
[2017-12-04] MEDS: NON-FORMULARY MEDICATION (Cranberry Conc/C/Bacill Coag [Cranberry Tablet] 1 EACH) PO SCH (08:49)
[2017-12-04] MEDS: INSULIN LISPRO 100 UNIT/ML SUBCUT SCH ×2 (08:50→12:02)
[2017-12-04 12:29] VITALS: BP 108/77
== END 2017-12-04 13:44 | disposition home health service (06) | DRG 247 ==
LOC: N.ED 11:35 → N.CL 14:04 → N.ICU 15:43 → N.TELES 11-29 12:49
PROVIDERS: ADMIT Internal Medicine Cardiovascular Disease; ATTEND Internal Medicine Cardiovascular Disease

== ENCOUNTER 2018-01-01 21:05 | Observation (INO) ==
[2018-01-02 13:24] VITALS: BP 121/70
== END 2018-01-02 14:50 | disposition home or self-care (01) ==
LOC: EDBD → EDUNIT# → N.ED 21:05 → N.EDINP 21:05 → N.TELEN 01-02 02:18

== ENCOUNTER 2018-04-30 12:41 | Observation (INO) ==
[2018-04-30 13:18] LABS: Basophils % 0.3 % (0.0-0.8); Eosinophils % 0.4 % (0.00-10.9); Hematocrit 32.3 VOL% (35.7-47.0); Hemoglobin 10.1 GM/DL (12.0-16.0); Immature Granulocytes % 0.3 %; Immature Granulocytes Absolute 0.02 #; Lymphocytes % 44.4 % (21.3-54.2); Mean Corpuscular HGB Conc 31.3 GM/DL (32-36); Mean Corpuscular Hemoglobin 28 PG (27-34); Mean Corpuscular Volume 90.7 FL (87-102); Mean Platelet Volume 9.3 FL (9.6-12.0); Monocytes # 0.5 10*3/uL (0.11-0.8); Monocytes % 6.7 % (1.7-12.7); Neutrophils # 3.3 10*3/uL (1.4-7.4); Neutrophils % 47.9 % (38.7-73.9); Platelet Count 315 T/CUMM (130-400); Red Blood Count 3.56 MC/CUMM (3.8-5.5); Red Cell Distribution Width 13.6 % (9.3-17.3); White Blood Count 6.8 T/CUMM (4-12)
[2018-04-30 13:34] LABS: INR 0.9; PT Patient Result 10.1 SECS; Partial Thromboplastin Time 25.6 SECS (0-40)
[2018-04-30 13:38] LABS: Alanine Aminotransferase 17 U/L (13-56); Albumin 3.3 G/DL (3.4-5.0); Alkaline Phosphatase 147 U/L (45-117); Aspartate Amino Transferase 14 U/L (0-37); Blood Urea Nitrogen 20 MG/DL (7-18); Calcium 9.4 MG/DL (8.5-10.1); Glucose 104 MG/DL (74-106); Osmolality,Calculated 279.5 MOS/KG (273-304); Potassium 4.1 MMOL/L (3.5-5.1); Sodium 139 MMOL/L (136-145); Troponin I < 0.015 NG/ML (0.00-0.045)
[2018-04-30] MEDS ORDERED: ENOXAPARIN 100 MG/ML SYRINGE SUBCUT STA (13:39)
[2018-04-30] MEDS ORDERED: ASPIRIN 325 MG TABLET PO STA (13:39)
[2018-04-30] MEDS ORDERED: DEXTROSE 50% 25 GM/50 ML VIAL IV PRN ×2 (15:50→15:58)
[2018-04-30] MEDS ORDERED: GLUCAGON 1 MG VIAL IM PRN ×2 (15:50→15:58)
[2018-04-30] MEDS ORDERED: ONDANSETRON 4 MG/2 ML VIAL IV PRN (15:50)
[2018-04-30] MEDS ORDERED: MAGNESIUM SULF RIDER 2 GM in PREMIX 1 EACH IV PRN (15:54)
[2018-04-30] MEDS ORDERED: MAGNESIUM SULF RIDER 4 GM in PREMIX 1 EACH IV PRN (15:54)
[2018-04-30] MEDS ORDERED: POTASSIUM CHLORIDE 20 MEQ TABLET PO PRN ×2 (15:54)
[2018-04-30] MEDS ORDERED: INFLUENZA VIRUS VACCINE 0.5 ML SYRINGE IM ONE (17:19)
[2018-04-30] MEDS: INSULIN REGULAR 100 UNIT/ML SUBCUT SCH ×2 (17:37→21:41)
[2018-04-30] MEDS: PANTOPRAZOLE 40 MG TABLET PO SCH (17:44)
[2018-04-30] MEDS: ACETAMINOPHEN 325 MG TABLET PO PRN (19:40)
[2018-04-30] MEDS: CARVEDILOL 6.25 MG TABLET PO SCH (21:36)
[2018-04-30] MEDS: TICAGRELOR 90 MG TABLET PO SCH (21:36)
[2018-04-30] MEDS: diphenhydrAMINE CAP 25 MG CAPSULE PO SCH (21:36)
[2018-05-01] MEDS ORDERED: KETOROLAC 30 MG/1 ML VIAL IV ONE (02:00)
[2018-05-01] MEDS ORDERED: ALUM/MAG/SIMETH/LIDO VISC 1:1 30 ML BOTTLE PO ONE (02:01)
[2018-05-01 05:08] LABS: Basophils % 0.5 % (0.0-0.8); Eosinophils # 0.1 10*3/uL (0.0-0.87); Eosinophils % 0.8 % (0.00-10.9); Hematocrit 29.5 VOL% (35.7-47.0); Hemoglobin 8.9 GM/DL (12.0-16.0); Immature Granulocytes % 0.5 %; Immature Granulocytes Absolute 0.03 #; Lymphocytes % 30.2 % (21.3-54.2); Mean Corpuscular HGB Conc 30.2 GM/DL (32-36); Mean Corpuscular Hemoglobin 27 PG (27-34); Mean Corpuscular Volume 90.5 FL (87-102); Mean Platelet Volume 9.8 FL (9.6-12.0); Monocytes # 0.8 10*3/uL (0.11-0.8); Monocytes % 11.5 % (1.7-12.7); Neutrophils # 3.7 10*3/uL (1.4-7.4); Neutrophils % 56.5 % (38.7-73.9); Platelet Count 274 T/CUMM (130-400); Red Blood Count 3.26 MC/CUMM (3.8-5.5); Red Cell Distribution Width 13.8 % (9.3-17.3); White Blood Count 6.6 T/CUMM (4-12)
[2018-05-01 05:30] LABS: Calcium 8.8 MG/DL (8.5-10.1); Osmolality,Calculated 285.4 MOS/KG (273-304); Potassium 4.1 MMOL/L (3.5-5.1); Thyroid Stimulating Hormone 47.3 uIU/ml (0.358-3.74)
[2018-05-01] MEDS: INSULIN REGULAR 100 UNIT/ML SUBCUT SCH ×4 (09:51→22:27)
[2018-05-01] MEDS: ISOSORBIDE MONONITRATE 60 MG TABLET PO SCH (13:22)
[2018-05-01] MEDS: CARVEDILOL 6.25 MG TABLET PO SCH ×2 (13:23→22:27)
[2018-05-01] MEDS: PANTOPRAZOLE 40 MG TABLET PO SCH (13:23)
[2018-05-01] MEDS: TICAGRELOR 90 MG TABLET PO SCH ×2 (13:23→22:27)
[2018-05-01] MEDS: ASPIRIN EC 81 MG TABLET PO SCH (13:23)
[2018-05-01] MEDS: RANOLAZINE 500 MG TABLET PO SCH ×2 (13:23→22:27)
[2018-05-01] MEDS ORDERED: ATORVASTATIN 80 MG TABLET PO SCH (21:00)
[2018-05-01] MEDS: diphenhydrAMINE CAP 25 MG CAPSULE PO SCH (22:26)
[2018-05-02] MEDS ORDERED: KETOROLAC 30 MG/1 ML VIAL IV ONE (01:16)
[2018-05-02 05:24] LABS: Basophils % 0.3 % (0.0-0.8); Eosinophils # 0.1 10*3/uL (0.0-0.87); Eosinophils % 0.9 % (0.00-10.9); Hematocrit 27.6 VOL% (35.7-47.0); Hemoglobin 8.5 GM/DL (12.0-16.0); Immature Granulocytes % 0.3 %; Immature Granulocytes Absolute 0.02 #; Lymphocytes # 1.8 10*3/uL (1.4-4.0); Lymphocytes % 28.1 % (21.3-54.2); Mean Corpuscular HGB Conc 30.8 GM/DL (32-36); Mean Corpuscular Hemoglobin 28 PG (27-34); Mean Corpuscular Volume 90.2 FL (87-102); Mean Platelet Volume 9.7 FL (9.6-12.0); Monocytes # 0.7 10*3/uL (0.11-0.8); Monocytes % 11.3 % (1.7-12.7); Neutrophils # 3.8 10*3/uL (1.4-7.4); Neutrophils % 59.1 % (38.7-73.9); Platelet Count 259 T/CUMM (130-400); Red Blood Count 3.06 MC/CUMM (3.8-5.5); Red Cell Distribution Width 13.8 % (9.3-17.3); White Blood Count 6.5 T/CUMM (4-12)
[2018-05-02 05:53] LABS: Calcium 8.5 MG/DL (8.5-10.1); Osmolality,Calculated 284.5 MOS/KG (273-304); Potassium 4.2 MMOL/L (3.5-5.1)
[2018-05-02] MEDS ORDERED: LEVOTHYROXINE 125 MCG TABLET PO SCH (07:00)
[2018-05-02] MEDS: INSULIN REGULAR 100 UNIT/ML SUBCUT SCH ×2 (07:58→12:16)
[2018-05-02] MEDS ORDERED: SODIUM CHLORIDE 0.9% 250 ML IV SCH (11:30)
[2018-05-02] MEDS: RANOLAZINE 500 MG TABLET PO SCH (12:23)
[2018-05-02] MEDS: NITROGLYCERIN SL 0.4 MG TABLET SL PRN ×2 (12:23→12:29)
[2018-05-02] MEDS: PANTOPRAZOLE 40 MG TABLET PO SCH (12:24)
[2018-05-02] MEDS: TICAGRELOR 90 MG TABLET PO SCH (12:24)
[2018-05-02] MEDS: ASPIRIN EC 81 MG TABLET PO SCH (12:24)
[2018-05-02] MEDS: ACETAMINOPHEN 325 MG TABLET PO PRN (12:24)
[2018-05-02] MEDS: ISOSORBIDE MONONITRATE 60 MG TABLET PO SCH (12:24)
[2018-05-02] MEDS: CARVEDILOL 6.25 MG TABLET PO SCH (12:25)
[2018-05-02 12:58] VITALS: BP 154/72
[2018-05-02] MEDS: DICLOFENAC 1% GEL 100 GM TUBE TOP SCH ×2 (14:06→14:44)
== END 2018-05-02 16:01 | disposition home health service (06) ==
LOC: EDUNIT# → EDBD → N.EDINP 12:41 → N.ED 12:41 → SUATTDRO 15:50 → N.2W 16:40 → N.TELEN 18:08
PROVIDERS: ADMIT Internal Medicine; ATTEND Internal Medicine

== ENCOUNTER 2018-12-21 03:46 | Observation (INO) ==
[2018-12-21 04:30] LABS: Basophils % 0.4 % (0.0-0.8); Eosinophils # 0.1 10*3/uL (0.0-0.87); Eosinophils % 1.6 % (0.00-10.9); Hematocrit 35.2 VOL% (35.7-47.0); Hemoglobin 10.6 GM/DL (12.0-16.0); Immature Granulocytes % 0.4 %; Immature Granulocytes Absolute 0.03 #; Lymphocytes # 2.2 10*3/uL (1.4-4.0); Lymphocytes % 27.9 % (21.3-54.2); Mean Corpuscular HGB Conc 30.1 GM/DL (32-36); Mean Corpuscular Volume 89.8 FL (87-102); Mean Platelet Volume 9.3 FL (9.6-12.0); Monocytes % 8.3 % (1.7-12.7); Neutrophils % 61.4 % (38.7-73.9); Platelet Count 298 T/CUMM (130-400); Red Blood Count 3.92 MC/CUMM (3.8-5.5); Red Cell Distribution Width 17.1 % (9.3-17.3); White Blood Count 7.9 T/CUMM (4-12)
[2018-12-21 04:49] LABS: Alanine Aminotransferase 14 U/L (13-56); Albumin 3.2 G/DL (3.4-5.0); Alkaline Phosphatase 139 U/L (45-117); Aspartate Amino Transferase 16 U/L (0-37); Bilirubin,Total < 0.39 MG/DL (0.2-1.0); Blood Urea Nitrogen 16 MG/DL (7-18); Calcium 8.9 MG/DL (8.5-10.1); Glucose 116 MG/DL (74-106); Osmolality,Calculated 291.6 MOS/KG (273-304); Total Protein 7.6 G/DL (6.4-8.3)
[2018-12-21] MEDS ORDERED: cefTRIAXone 1,000 MG in SODIUM CHLORIDE 0.9% 100 ML IV STA (05:18)
[2018-12-21] MEDS ORDERED: AZITHROMYCIN 250 MG TABLET PO STA (05:19)
[2018-12-21] MEDS ORDERED: FUROSEMIDE 40 MG/4 ML VIAL IV STA (05:20)
[2018-12-21] MEDS ORDERED: ONDANSETRON 4 MG/2 ML VIAL IV PRN (06:07)
[2018-12-21] MEDS ORDERED: NITROGLYCERIN SL 0.4 MG TABLET SL PRN (06:12)
[2018-12-21] MEDS: ALBUTEROL/IPRATROPIUM 3 ML NEB RESP TX SCH ×5 (06:56→23:30)
[2018-12-21] MEDS ORDERED: FUROSEMIDE 40 MG/4 ML VIAL IV SCH (09:00)
[2018-12-21] MEDS ORDERED: PANTOPRAZOLE 40 MG TABLET PO SCH (09:00)
[2018-12-21] MEDS ORDERED: LOSARTAN 25 MG TABLET PO SCH (09:00)
[2018-12-21] MEDS ORDERED: ISOSORBIDE MONONITRATE 60 MG TABLET PO SCH (09:00)
[2018-12-21] MEDS ORDERED: CARVEDILOL 6.25 MG TABLET PO SCH (09:00)
[2018-12-21] MEDS: ASPIRIN EC 81 MG TABLET PO SCH (09:06)
[2018-12-21] MEDS: TICAGRELOR 90 MG TABLET PO SCH ×2 (09:06→20:46)
[2018-12-21] MEDS: ENOXAPARIN 40 MG/0.4 ML SYRINGE SUBCUT SCH (09:10)
[2018-12-21] MEDS ORDERED: SODIUM CHLORIDE 0.9% 500 ML IV ONE (17:30)
[2018-12-21] MEDS ORDERED: HYDROCORTISONE 100 MG VIAL IV ONE (18:00)
[2018-12-21] MEDS ORDERED: FLUDROCORTISONE 0.1 MG TABLET PO ONE (18:00)
[2018-12-21] MEDS: ACETAMINOPHEN 325 MG TABLET PO PRN (21:20)
[2018-12-22] MEDS: ALBUTEROL/IPRATROPIUM 3 ML NEB RESP TX SCH ×6 (04:25→23:47)
[2018-12-22 05:38] LABS: Calcium 8.3 MG/DL (8.5-10.1); Osmolality,Calculated 293.8 MOS/KG (273-304)
[2018-12-22] MEDS ORDERED: LEVOTHYROXINE 125 MCG TABLET PO SCH (06:00)
[2018-12-22] MEDS ORDERED: cefTRIAXone 1,000 MG in SYRINGE 1 EACH IV SCH (06:00)
[2018-12-22] MEDS: ENOXAPARIN 40 MG/0.4 ML SYRINGE SUBCUT SCH (06:10)
[2018-12-22] MEDS ORDERED: AZITHROMYCIN INJ 500 MG in SODIUM CHLORIDE 0.9% 250 ML IV SCH (06:30)
[2018-12-22] MEDS ORDERED: SPIRONOLACTONE 25 MG TABLET PO ONE (07:51)
[2018-12-22] MEDS: FUROSEMIDE 20 MG TABLET PO SCH (09:02)
[2018-12-22] MEDS: FLUDROCORTISONE 0.1 MG TABLET PO SCH (09:02)
[2018-12-22] MEDS: TICAGRELOR 90 MG TABLET PO SCH ×2 (09:03→21:12)
[2018-12-22] MEDS: CARVEDILOL 3.125 MG TABLET PO SCH ×2 (09:03→21:11)
[2018-12-22] MEDS: PANTOPRAZOLE 40 MG TABLET PO SCH ×2 (09:03→21:12)
[2018-12-22] MEDS: DOCUSATE SODIUM 100 MG CAPSULE PO PRN (09:03)
[2018-12-22] MEDS: ASPIRIN EC 81 MG TABLET PO SCH (09:03)
[2018-12-22] MEDS: POTASSIUM CHLORIDE 8 MEQ CAPSULE PO SCH ×2 (09:06→21:11)
[2018-12-22] MEDS: TAMSULOSIN 0.4 MG CAPSULE PO SCH (09:06)
[2018-12-22] MEDS: LEVOTHYROXINE 150 MCG TABLET PO SCH (09:06)
[2018-12-22] MEDS: ACETAMINOPHEN 325 MG TABLET PO PRN (21:11)
[2018-12-23] MEDS: ALBUTEROL/IPRATROPIUM 3 ML NEB RESP TX SCH ×6 (02:31→23:17)
[2018-12-23] MEDS: ENOXAPARIN 40 MG/0.4 ML SYRINGE SUBCUT SCH (05:55)
[2018-12-23] MEDS: PANTOPRAZOLE 40 MG TABLET PO SCH (09:16)
[2018-12-23] MEDS: FUROSEMIDE 20 MG TABLET PO SCH (09:16)
[2018-12-23] MEDS: LEVOTHYROXINE 150 MCG TABLET PO SCH (09:16)
[2018-12-23] MEDS: FLUDROCORTISONE 0.1 MG TABLET PO SCH (09:16)
[2018-12-23] MEDS: ASPIRIN EC 81 MG TABLET PO SCH (09:17)
[2018-12-23] MEDS: TICAGRELOR 90 MG TABLET PO SCH (09:17)
[2018-12-23] MEDS: TAMSULOSIN 0.4 MG CAPSULE PO SCH (09:17)
[2018-12-23] MEDS: POTASSIUM CHLORIDE 8 MEQ CAPSULE PO SCH (09:17)
[2018-12-23] MEDS: CARVEDILOL 3.125 MG TABLET PO SCH (09:17)
[2018-12-23] MEDS: SKIN HEALING OINT (AQUAPHOR) 50 GM TUBE TOP SCH (13:37)
[2018-12-23] MEDS: ACETAMINOPHEN 325 MG TABLET PO PRN ×2 (15:46)
[2018-12-23] MEDS ORDERED: LACTULOSE 20 GM/30 ML UDCUP PO ONE (22:48)
[2018-12-23] MEDS ORDERED: DOCUSATE SODIUM 100 MG CAPSULE PO PRN (22:48)
[2018-12-24] MEDS: PANTOPRAZOLE 40 MG TABLET PO SCH ×2 (00:55→08:45)
[2018-12-24] MEDS: CARVEDILOL 3.125 MG TABLET PO SCH ×2 (00:55→08:45)
[2018-12-24] MEDS: TICAGRELOR 90 MG TABLET PO SCH ×2 (00:55→08:45)
[2018-12-24] MEDS: POTASSIUM CHLORIDE 8 MEQ CAPSULE PO SCH ×2 (00:55→08:50)
[2018-12-24] MEDS: ACETAMINOPHEN 325 MG TABLET PO PRN (00:59)
[2018-12-24] MEDS: ALBUTEROL/IPRATROPIUM 3 ML NEB RESP TX SCH ×3 (02:31→10:55)
[2018-12-24 05:44] LABS: Calcium 8.7 MG/DL (8.5-10.1)
[2018-12-24] MEDS: ENOXAPARIN 40 MG/0.4 ML SYRINGE SUBCUT SCH (06:21)
[2018-12-24] MEDS ORDERED: POTASSIUM CHLORIDE 20 MEQ TABLET PO ONE (07:32)
[2018-12-24] MEDS: TAMSULOSIN 0.4 MG CAPSULE PO SCH (08:44)
[2018-12-24] MEDS: DOCUSATE SODIUM 100 MG CAPSULE PO PRN (08:44)
[2018-12-24] MEDS: FLUDROCORTISONE 0.1 MG TABLET PO SCH (08:44)
[2018-12-24] MEDS: ASPIRIN EC 81 MG TABLET PO SCH (08:45)
[2018-12-24] MEDS: SKIN HEALING OINT (AQUAPHOR) 50 GM TUBE TOP SCH (08:45)
[2018-12-24] MEDS: LEVOTHYROXINE 150 MCG TABLET PO SCH (08:47)
[2018-12-24] MEDS: FUROSEMIDE 20 MG TABLET PO SCH (08:49)
[2018-12-24 11:53] VITALS: BP 166/75
== END 2018-12-24 14:23 | disposition home health service (06) ==
LOC: EDUNIT# → N.ED 03:46 → N.EDINP 03:46 → N.TELEN 06:48
PROVIDERS: ADMIT Family Medicine; ATTEND Family Medicine

== ENCOUNTER 2019-06-15 15:30 | Inpatient (IN) ==
[2019-06-15] MEDS ORDERED: SODIUM CHLORIDE 0.9% 500 ML IV STA (16:05)
[2019-06-15 17:00] LABS: Basophils % 0.3 % (0.0-0.8); Eosinophils # 0.1 10*3/uL (0.0-0.87); Eosinophils % 0.8 % (0.00-10.9); Hematocrit 34.6 VOL% (35.7-47.0); Hemoglobin 10.9 GM/DL (12.0-16.0); Immature Granulocytes % 0.3 %; Immature Granulocytes Absolute 0.02 #; Lymphocytes # 2.8 10*3/uL (1.4-4.0); Lymphocytes % 39.8 % (21.3-54.2); Mean Corpuscular HGB Conc 31.5 GM/DL (32-36); Mean Corpuscular Volume 91.5 FL (87-102); Mean Platelet Volume 9.4 FL (9.6-12.0); Monocytes % 7.4 % (1.7-12.7); Neutrophils % 51.4 % (38.7-73.9); Platelet Count 238 T/CUMM (130-400); Red Blood Count 3.78 MC/CUMM (3.8-5.5); Red Cell Distribution Width 14.8 % (9.3-17.3); White Blood Count 7.1 T/CUMM (4-12)
[2019-06-15 17:10] LABS: INR 0.9
[2019-06-15] MEDS ORDERED: ACETAMINOPHEN 500 MG TABLET ONE (17:14)
[2019-06-15] MEDS ORDERED: ACETAMINOPHEN 500 MG TABLET PO STA (17:17)
[2019-06-15 17:25] LABS: Alanine Aminotransferase 12 U/L (13-56); Albumin 3.2 G/DL (3.4-5.0); Alkaline Phosphatase 91 U/L (45-117); Aspartate Amino Transferase 12 U/L (0-37); Blood Urea Nitrogen 19 MG/DL (7-18); Calcium 8.7 MG/DL (8.5-10.1); Estimated Glom Filtration Rate 59 ML/MIN; Glucose 91 MG/DL (74-106); Osmolality,Calculated 282.3 MOS/KG (273-304); Total Protein 7.1 G/DL (6.4-8.3); Troponin I < 0.015 NG/ML (0.00-0.045)
[2019-06-15 17:37] LABS: Apearance,Urine CLEAR (Clear); Bilirubin,Urine Negative (Negative); Blood, Urine Negative (Negative); Glucose,Urine (UA) Negative (Negative); Hyaline Casts,Urine 3 /LPF (0-3); Ketones,Urine 5 mg/dL (Negative); Mucus,Urine Occasional /LPF (Occasional); Nitrite,Urine Negative (Negative); Protein,Urine 30 MG/DL; RBC,Urine 1 /HPF (0-4); Squamous Epithelial Cell,Urine Occasional /HPF (0-10); Urine Color Yellow (Yellow); Urine Specific Gravity 1.018 (1.001-1.035); Urine Urobilinogen < 2.0 EU/DL (0.2-1.0); WBC,Urine <1 /HPF (0-6)
[2019-06-15] MEDS ORDERED: LABETALOL 20 MG/4 ML SYRINGE IV PRN (18:14)
[2019-06-15] MEDS ORDERED: GLUCAGON 1 MG VIAL IM PRN (20:59)
[2019-06-15] MEDS ORDERED: DEXTROSE 10% 250 ML BAG IV PRN (20:59)
[2019-06-15] MEDS: INSULIN REGULAR 100 UNIT/ML SUBCUT SCH (21:16)
[2019-06-16 08:49] LABS: Risk Ratio 3.97
[2019-06-16] MEDS: INSULIN REGULAR 100 UNIT/ML SUBCUT SCH ×4 (09:04→21:15)
[2019-06-16] MEDS ORDERED: NITROGLYCERIN SL 0.4 MG TABLET SL PRN (11:32)
[2019-06-16] MEDS: ACETAMINOPHEN 325 MG TABLET PO PRN (14:47)
[2019-06-16] MEDS: DOCUSATE SODIUM 100 MG CAPSULE PO PRN (17:05)
[2019-06-16] MEDS ORDERED: TICAGRELOR 90 MG TABLET PO SCH (21:00)
[2019-06-16] MEDS ORDERED: ATORVASTATIN 20 MG TABLET PO SCH (21:00)
[2019-06-16] MEDS: POTASSIUM CHLORIDE 8 MEQ CAPSULE PO SCH (21:08)
[2019-06-16] MEDS: carvediloL 3.125 MG TABLET PO SCH (21:08)
[2019-06-17] MEDS ORDERED: SODIUM PHOSPHATE ENEMA 133 ML BOTTLE RECTAL ONE (02:55)
[2019-06-17] MEDS: LEVOTHYROXINE 175 MCG TABLET PO SCH (06:29)
[2019-06-17] MEDS: TAMSULOSIN 0.4 MG CAPSULE PO SCH (08:37)
[2019-06-17] MEDS: FLUDROCORTISONE 0.1 MG TABLET PO SCH (08:37)
[2019-06-17] MEDS: POTASSIUM CHLORIDE 8 MEQ CAPSULE PO SCH ×2 (08:37→20:03)
[2019-06-17] MEDS: carvediloL 3.125 MG TABLET PO SCH ×2 (08:37→20:03)
[2019-06-17] MEDS: FUROSEMIDE 20 MG TABLET PO SCH (08:37)
[2019-06-17] MEDS: ASPIRIN EC 81 MG TABLET PO SCH (08:37)
[2019-06-17] MEDS: INSULIN REGULAR 100 UNIT/ML SUBCUT SCH ×3 (08:47→17:16)
[2019-06-17] MEDS ORDERED: CLOPIDOGREL 75 MG TABLET PO SCH (09:00)
[2019-06-17] MEDS: ACETAMINOPHEN 325 MG TABLET PO PRN ×2 (13:20→17:28)
[2019-06-17] MEDS ORDERED: ALBUTEROL/IPRATROPIUM 3 ML NEB RESP TX PRN (16:10)
[2019-06-17] MEDS: cefTRIAXone 1,000 MG in SYRINGE 1 EACH IV SCH (17:25)
[2019-06-17] MEDS: ALBUTEROL/IPRATROPIUM 3 ML NEB RESP TX SCH (19:08)
[2019-06-17] MEDS: ATORVASTATIN 20 MG TABLET PO SCH (20:02)
[2019-06-17] MEDS: PANTOPRAZOLE 40 MG TABLET PO SCH (20:03)
[2019-06-18] MEDS: ALBUTEROL/IPRATROPIUM 3 ML NEB RESP TX SCH ×4 (00:31→19:04)
[2019-06-18] MEDS: INSULIN REGULAR 100 UNIT/ML SUBCUT SCH ×5 (01:12→22:20)
[2019-06-18] MEDS: LACTATED RINGERS 1,000 ML IV SCH (07:46)
[2019-06-18 08:08] LABS: Basophils % 0.4 % (0.0-0.8); Eosinophils # 0.1 10*3/uL (0.0-0.87); Eosinophils % 1.3 % (0.00-10.9); Hematocrit 35.5 VOL% (35.7-47.0); Hemoglobin 11.2 GM/DL (12.0-16.0); Immature Granulocytes % 0.1 %; Immature Granulocytes Absolute 0.01 #; Lymphocytes # 2.9 10*3/uL (1.4-4.0); Lymphocytes % 40.5 % (21.3-54.2); Mean Corpuscular HGB Conc 31.5 GM/DL (32-36); Mean Corpuscular Volume 90.3 FL (87-102); Mean Platelet Volume 9.6 FL (9.6-12.0); Monocytes % 10.2 % (1.7-12.7); Neutrophils % 47.5 % (38.7-73.9); Platelet Count 227 T/CUMM (130-400); Red Blood Count 3.93 MC/CUMM (3.8-5.5); Red Cell Distribution Width 14.9 % (9.3-17.3); White Blood Count 7.2 T/CUMM (4-12)
[2019-06-18] MEDS: PANTOPRAZOLE 40 MG TABLET PO SCH ×2 (08:18→10:16)
[2019-06-18] MEDS: LEVOTHYROXINE 175 MCG TABLET PO SCH (08:18)
[2019-06-18] MEDS ORDERED: propofoL 200 MG/20 ML VIAL IV ONE (10:00)
[2019-06-18] MEDS ORDERED: ETOMIDATE 20 MG/10 ML VIAL IV ONE (10:00)
[2019-06-18] MEDS ORDERED: LIDOCAINE 2% 5 ML VIAL ONE (10:00)
[2019-06-18] MEDS: FLUDROCORTISONE 0.1 MG TABLET PO SCH (10:15)
[2019-06-18 10:16] LABS: Calcium 8.6 MG/DL (8.5-10.1)
[2019-06-18] MEDS: POTASSIUM CHLORIDE 8 MEQ CAPSULE PO SCH ×2 (10:16→20:26)
[2019-06-18] MEDS: ASPIRIN EC 81 MG TABLET PO SCH (10:16)
[2019-06-18] MEDS: FUROSEMIDE 20 MG TABLET PO SCH (10:16)
[2019-06-18] MEDS: TAMSULOSIN 0.4 MG CAPSULE PO SCH (10:16)
[2019-06-18] MEDS: carvediloL 3.125 MG TABLET PO SCH ×2 (10:17→22:19)
[2019-06-18] MEDS ORDERED: TUBERCULIN SKIN TEST 0.1 ML SYRINGE INTRADERM ONE (10:40)
[2019-06-18] MEDS: METOCLOPRAMIDE 10 MG/10 ML UDCUP PO SCH ×3 (12:14→20:26)
[2019-06-18] MEDS: ACETAMINOPHEN 325 MG TABLET PO PRN ×3 (12:15→23:08)
[2019-06-18] MEDS: cefTRIAXone 1,000 MG in SYRINGE 1 EACH IV SCH (17:23)
[2019-06-18] MEDS: ATORVASTATIN 20 MG TABLET PO SCH (20:25)
[2019-06-18] MEDS: TICAGRELOR 90 MG TABLET PO SCH (20:25)
[2019-06-19] MEDS: ALBUTEROL/IPRATROPIUM 3 ML NEB RESP TX SCH ×4 (00:51→19:20)
[2019-06-19 05:54] LABS: Basophils % 0.2 % (0.0-0.8); Eosinophils # 0.1 10*3/uL (0.0-0.87); Eosinophils % 1.6 % (0.00-10.9); Hematocrit 30.8 VOL% (35.7-47.0); Hemoglobin 9.8 GM/DL (12.0-16.0); Immature Granulocytes % 0.2 %; Immature Granulocytes Absolute 0.01 #; Lymphocytes # 2.4 10*3/uL (1.4-4.0); Lymphocytes % 38.7 % (21.3-54.2); Mean Corpuscular HGB Conc 31.8 GM/DL (32-36); Mean Corpuscular Volume 89.5 FL (87-102); Mean Platelet Volume 9.7 FL (9.6-12.0); Neutrophils % 49.3 % (38.7-73.9); Platelet Count 205 T/CUMM (130-400); Red Blood Count 3.44 MC/CUMM (3.8-5.5); Red Cell Distribution Width 15.2 % (9.3-17.3); White Blood Count 6.2 T/CUMM (4-12)
[2019-06-19] MEDS: LEVOTHYROXINE 175 MCG TABLET PO SCH (06:01)
[2019-06-19] MEDS: LACTATED RINGERS 1,000 ML IV SCH (06:04)
[2019-06-19 06:14] LABS: Calcium 8.6 MG/DL (8.5-10.1); Osmolality,Calculated 281.4 MOS/KG (273-304)
[2019-06-19] MEDS: TICAGRELOR 90 MG TABLET PO SCH ×2 (08:58→20:05)
[2019-06-19] MEDS: METOCLOPRAMIDE 10 MG/10 ML UDCUP PO SCH ×4 (08:58→19:59)
[2019-06-19] MEDS: FUROSEMIDE 20 MG TABLET PO SCH (08:58)
[2019-06-19] MEDS: FLUDROCORTISONE 0.1 MG TABLET PO SCH (08:59)
[2019-06-19] MEDS: ASPIRIN EC 81 MG TABLET PO SCH (09:00)
[2019-06-19] MEDS: PANTOPRAZOLE 40 MG TABLET PO SCH (09:00)
[2019-06-19] MEDS: POTASSIUM CHLORIDE 8 MEQ CAPSULE PO SCH ×2 (09:00→19:59)
[2019-06-19] MEDS: TAMSULOSIN 0.4 MG CAPSULE PO SCH (09:01)
[2019-06-19] MEDS: carvediloL 3.125 MG TABLET PO SCH ×2 (09:02→20:05)
[2019-06-19] MEDS: ACETAMINOPHEN 325 MG TABLET PO PRN ×2 (09:03→20:05)
[2019-06-19] MEDS: INSULIN REGULAR 100 UNIT/ML SUBCUT SCH ×4 (09:06→22:11)
[2019-06-19] MEDS: LIDOCAINE 5% PATCH TRANSDERM SCH (12:31)
[2019-06-19] MEDS: DICLOFENAC 1% GEL 100 GM TUBE TOP SCH ×2 (15:06→22:12)
[2019-06-19] MEDS: cefTRIAXone 1,000 MG in SYRINGE 1 EACH IV SCH (16:23)
[2019-06-19] MEDS: ATORVASTATIN 20 MG TABLET PO SCH (20:00)
[2019-06-20] MEDS: ALBUTEROL/IPRATROPIUM 3 ML NEB RESP TX SCH ×4 (00:58→19:58)
[2019-06-20] MEDS: ACETAMINOPHEN 325 MG TABLET PO PRN ×3 (01:35→20:23)
[2019-06-20 05:05] LABS: Basophils % 0.4 % (0.0-0.8); Eosinophils # 0.1 10*3/uL (0.0-0.87); Eosinophils % 2.5 % (0.00-10.9); Hematocrit 30.5 VOL% (35.7-47.0); Hemoglobin 9.8 GM/DL (12.0-16.0); Immature Granulocytes % 0.4 %; Immature Granulocytes Absolute 0.02 #; Lymphocytes # 1.8 10*3/uL (1.4-4.0); Lymphocytes % 31.7 % (21.3-54.2); Mean Corpuscular HGB Conc 32.1 GM/DL (32-36); Mean Corpuscular Volume 89.7 FL (87-102); Mean Platelet Volume 10.2 FL (9.6-12.0); Monocytes % 11.3 % (1.7-12.7); Neutrophils % 53.7 % (38.7-73.9); Platelet Count 234 T/CUMM (130-400); Red Cell Distribution Width 15.2 % (9.3-17.3); White Blood Count 5.7 T/CUMM (4-12)
[2019-06-20 05:28] LABS: Calcium 8.4 MG/DL (8.5-10.1); Osmolality,Calculated 273.8 MOS/KG (273-304)
[2019-06-20] MEDS: LEVOTHYROXINE 175 MCG TABLET PO SCH (06:20)
[2019-06-20] MEDS: LACTATED RINGERS 1,000 ML IV SCH (07:30)
[2019-06-20] MEDS: ASPIRIN EC 81 MG TABLET PO SCH (08:28)
[2019-06-20] MEDS: TICAGRELOR 90 MG TABLET PO SCH ×2 (08:28→20:23)
[2019-06-20] MEDS: FLUDROCORTISONE 0.1 MG TABLET PO SCH (08:28)
[2019-06-20] MEDS: FUROSEMIDE 20 MG TABLET PO SCH (08:29)
[2019-06-20] MEDS: carvediloL 3.125 MG TABLET PO SCH ×2 (08:29→20:23)
[2019-06-20] MEDS: TAMSULOSIN 0.4 MG CAPSULE PO SCH (08:29)
[2019-06-20] MEDS: POTASSIUM CHLORIDE 8 MEQ CAPSULE PO SCH ×2 (08:29→20:23)
[2019-06-20] MEDS: PANTOPRAZOLE 40 MG TABLET PO SCH (08:29)
[2019-06-20] MEDS: DOCUSATE SODIUM 100 MG CAPSULE PO PRN ×2 (08:29→20:22)
[2019-06-20] MEDS: METOCLOPRAMIDE 10 MG/10 ML UDCUP PO SCH ×4 (08:29→20:23)
[2019-06-20] MEDS: INSULIN REGULAR 100 UNIT/ML SUBCUT SCH ×3 (08:30→16:41)
[2019-06-20] MEDS: LIDOCAINE 5% PATCH TRANSDERM SCH (11:08)
[2019-06-20] MEDS: DICLOFENAC 1% GEL 100 GM TUBE TOP SCH ×3 (11:09→21:00)
[2019-06-20] MEDS: cefTRIAXone 1,000 MG in SYRINGE 1 EACH IV SCH (18:28)
[2019-06-20] MEDS: ATORVASTATIN 20 MG TABLET PO SCH (20:22)
[2019-06-20] MEDS: traZODone 50 MG TABLET PO SCH (20:31)
[2019-06-21] MEDS: INSULIN REGULAR 100 UNIT/ML SUBCUT SCH ×5 (00:25→20:47)
[2019-06-21] MEDS: ALBUTEROL/IPRATROPIUM 3 ML NEB RESP TX SCH ×4 (02:11→20:04)
[2019-06-21 05:03] LABS: Basophils % 0.2 % (0.0-0.8); Eosinophils # 0.2 10*3/uL (0.0-0.87); Eosinophils % 3.3 % (0.00-10.9); Hematocrit 31.1 VOL% (35.7-47.0); Hemoglobin 9.8 GM/DL (12.0-16.0); Immature Granulocytes % 0.4 %; Immature Granulocytes Absolute 0.02 #; Lymphocytes # 1.8 10*3/uL (1.4-4.0); Lymphocytes % 37.1 % (21.3-54.2); Mean Corpuscular HGB Conc 31.5 GM/DL (32-36); Mean Corpuscular Volume 90.9 FL (87-102); Mean Platelet Volume 10.1 FL (9.6-12.0); Monocytes % 9.4 % (1.7-12.7); Neutrophils % 49.6 % (38.7-73.9); Platelet Count 240 T/CUMM (130-400); Red Blood Count 3.42 MC/CUMM (3.8-5.5); Red Cell Distribution Width 15.1 % (9.3-17.3); White Blood Count 4.8 T/CUMM (4-12)
[2019-06-21 05:38] LABS: Calcium 8.9 MG/DL (8.5-10.1); Osmolality,Calculated 276.7 MOS/KG (273-304)
[2019-06-21] MEDS: LIDOCAINE 5% PATCH TRANSDERM SCH (08:41)
[2019-06-21] MEDS: FLUDROCORTISONE 0.1 MG TABLET PO SCH (08:42)
[2019-06-21] MEDS: POTASSIUM CHLORIDE 8 MEQ CAPSULE PO SCH ×2 (08:42→20:49)
[2019-06-21] MEDS: TAMSULOSIN 0.4 MG CAPSULE PO SCH (08:43)
[2019-06-21] MEDS: FUROSEMIDE 20 MG TABLET PO SCH (08:43)
[2019-06-21] MEDS: TICAGRELOR 90 MG TABLET PO SCH ×2 (08:43→20:49)
[2019-06-21] MEDS: ASPIRIN EC 81 MG TABLET PO SCH (08:43)
[2019-06-21] MEDS: LEVOTHYROXINE 175 MCG TABLET PO SCH (08:44)
[2019-06-21] MEDS: carvediloL 3.125 MG TABLET PO SCH ×2 (08:44→20:49)
[2019-06-21] MEDS: METOCLOPRAMIDE 10 MG/10 ML UDCUP PO SCH ×4 (08:44→20:48)
[2019-06-21] MEDS: PANTOPRAZOLE 40 MG TABLET PO SCH (08:44)
[2019-06-21] MEDS: DICLOFENAC 1% GEL 100 GM TUBE TOP SCH ×3 (08:45→20:51)
[2019-06-21] MEDS: cefTRIAXone 1,000 MG in SYRINGE 1 EACH IV SCH (17:34)
[2019-06-21] MEDS: ATORVASTATIN 20 MG TABLET PO SCH (20:48)
[2019-06-21] MEDS: traZODone 50 MG TABLET PO SCH (20:49)
[2019-06-22] MEDS: ALBUTEROL/IPRATROPIUM 3 ML NEB RESP TX SCH ×4 (00:41→19:20)
[2019-06-22] MEDS: LEVOTHYROXINE 175 MCG TABLET PO SCH (05:35)
[2019-06-22 05:45] LABS: Basophils % 0.5 % (0.0-0.8); Eosinophils # 0.2 10*3/uL (0.0-0.87); Eosinophils % 3.7 % (0.00-10.9); Hematocrit 31.1 VOL% (35.7-47.0); Hemoglobin 9.8 GM/DL (12.0-16.0); Immature Granulocytes % 0.2 %; Immature Granulocytes Absolute 0.01 #; Lymphocytes # 1.3 10*3/uL (1.4-4.0); Lymphocytes % 30.7 % (21.3-54.2); Mean Corpuscular HGB Conc 31.5 GM/DL (32-36); Mean Corpuscular Volume 90.4 FL (87-102); Mean Platelet Volume 10.1 FL (9.6-12.0); Neutrophils % 53.9 % (38.7-73.9); Platelet Count 245 T/CUMM (130-400); Red Blood Count 3.44 MC/CUMM (3.8-5.5); Red Cell Distribution Width 15.3 % (9.3-17.3); White Blood Count 4.4 T/CUMM (4-12)
[2019-06-22 05:56] LABS: Calcium 8.7 MG/DL (8.5-10.1); Osmolality,Calculated 276.8 MOS/KG (273-304)
[2019-06-22] MEDS: INSULIN REGULAR 100 UNIT/ML SUBCUT SCH ×4 (08:58→20:43)
[2019-06-22] MEDS: LIDOCAINE 5% PATCH TRANSDERM SCH (09:10)
[2019-06-22] MEDS: METOCLOPRAMIDE 10 MG/10 ML UDCUP PO SCH ×4 (09:10→20:41)
[2019-06-22] MEDS: PANTOPRAZOLE 40 MG TABLET PO SCH (09:11)
[2019-06-22] MEDS: ASPIRIN EC 81 MG TABLET PO SCH (09:11)
[2019-06-22] MEDS: FUROSEMIDE 20 MG TABLET PO SCH (09:11)
[2019-06-22] MEDS: TAMSULOSIN 0.4 MG CAPSULE PO SCH (09:11)
[2019-06-22] MEDS: POTASSIUM CHLORIDE 8 MEQ CAPSULE PO SCH ×2 (09:11→20:42)
[2019-06-22] MEDS: FLUDROCORTISONE 0.1 MG TABLET PO SCH (09:11)
[2019-06-22] MEDS: TICAGRELOR 90 MG TABLET PO SCH ×2 (09:12→20:42)
[2019-06-22] MEDS: carvediloL 3.125 MG TABLET PO SCH ×2 (09:12→20:42)
[2019-06-22] MEDS: DICLOFENAC 1% GEL 100 GM TUBE TOP SCH ×3 (09:12→20:44)
[2019-06-22] MEDS: ACETAMINOPHEN 325 MG TABLET PO PRN (16:27)
[2019-06-22] MEDS: cefTRIAXone 1,000 MG in SYRINGE 1 EACH IV SCH (17:10)
[2019-06-22] MEDS: traZODone 50 MG TABLET PO SCH (20:42)
[2019-06-22] MEDS: ATORVASTATIN 20 MG TABLET PO SCH (20:42)
[2019-06-23] MEDS: ALBUTEROL/IPRATROPIUM 3 ML NEB RESP TX SCH ×4 (00:55→20:55)
[2019-06-23] MEDS: LEVOTHYROXINE 175 MCG TABLET PO SCH (05:44)
[2019-06-23] MEDS: ACETAMINOPHEN 325 MG TABLET PO PRN ×3 (05:44→19:34)
[2019-06-23] MEDS: LIDOCAINE 5% PATCH TRANSDERM SCH (09:45)
[2019-06-23] MEDS: INSULIN REGULAR 100 UNIT/ML SUBCUT SCH ×4 (09:48→21:14)
[2019-06-23] MEDS: TAMSULOSIN 0.4 MG CAPSULE PO SCH (09:49)
[2019-06-23] MEDS: ASPIRIN EC 81 MG TABLET PO SCH (09:49)
[2019-06-23] MEDS: METOCLOPRAMIDE 10 MG/10 ML UDCUP PO SCH ×4 (09:49→21:13)
[2019-06-23] MEDS: carvediloL 3.125 MG TABLET PO SCH ×2 (09:49→21:14)
[2019-06-23] MEDS: FUROSEMIDE 20 MG TABLET PO SCH (09:49)
[2019-06-23] MEDS: POTASSIUM CHLORIDE 8 MEQ CAPSULE PO SCH ×2 (09:49→21:14)
[2019-06-23] MEDS: FLUDROCORTISONE 0.1 MG TABLET PO SCH (09:49)
[2019-06-23] MEDS: PANTOPRAZOLE 40 MG TABLET PO SCH (09:50)
[2019-06-23] MEDS: TICAGRELOR 90 MG TABLET PO SCH (09:50)
[2019-06-23] MEDS: DICLOFENAC 1% GEL 100 GM TUBE TOP SCH ×3 (09:50→21:17)
[2019-06-23] MEDS: cefTRIAXone 1,000 MG in SYRINGE 1 EACH IV SCH (18:21)
[2019-06-23] MEDS: ATORVASTATIN 20 MG TABLET PO SCH (21:13)
[2019-06-23] MEDS: traZODone 50 MG TABLET PO SCH (21:14)
[2019-06-23] MEDS: APIXABAN 5 MG TABLET PO SCH (21:14)
[2019-06-24] MEDS: ALBUTEROL/IPRATROPIUM 3 ML NEB RESP TX SCH ×4 (02:19→19:18)
[2019-06-24] MEDS: LEVOTHYROXINE 175 MCG TABLET PO SCH (06:28)
[2019-06-24] MEDS: POTASSIUM CHLORIDE 8 MEQ CAPSULE PO SCH ×2 (08:24→20:40)
[2019-06-24] MEDS: ASPIRIN EC 81 MG TABLET PO SCH (08:24)
[2019-06-24] MEDS: PANTOPRAZOLE 40 MG TABLET PO SCH (08:24)
[2019-06-24] MEDS: TAMSULOSIN 0.4 MG CAPSULE PO SCH (08:24)
[2019-06-24] MEDS: carvediloL 3.125 MG TABLET PO SCH ×2 (08:24→20:40)
[2019-06-24] MEDS: FUROSEMIDE 20 MG TABLET PO SCH (08:24)
[2019-06-24] MEDS: LIDOCAINE 5% PATCH TRANSDERM SCH (08:24)
[2019-06-24] MEDS: DOCUSATE SODIUM 100 MG CAPSULE PO PRN ×2 (08:24→20:40)
[2019-06-24] MEDS: DICLOFENAC 1% GEL 100 GM TUBE TOP SCH ×3 (08:25→20:47)
[2019-06-24] MEDS: METOCLOPRAMIDE 10 MG/10 ML UDCUP PO SCH ×4 (08:26→20:39)
[2019-06-24] MEDS: FLUDROCORTISONE 0.1 MG TABLET PO SCH (08:28)
[2019-06-24] MEDS: INSULIN REGULAR 100 UNIT/ML SUBCUT SCH ×4 (08:29→20:47)
[2019-06-24] MEDS: APIXABAN 5 MG TABLET PO SCH ×2 (08:31→20:40)
[2019-06-24] MEDS: cefTRIAXone 1,000 MG in SYRINGE 1 EACH IV SCH (17:18)
[2019-06-24] MEDS: traZODone 50 MG TABLET PO SCH (20:40)
[2019-06-24] MEDS: ATORVASTATIN 20 MG TABLET PO SCH (20:40)
[2019-06-24] MEDS: ACETAMINOPHEN 325 MG TABLET PO PRN (22:17)
[2019-06-25] MEDS: ALBUTEROL/IPRATROPIUM 3 ML NEB RESP TX SCH ×4 (00:01→21:12)
[2019-06-25] MEDS: ACETAMINOPHEN 325 MG TABLET PO PRN (02:30)
[2019-06-25] MEDS: LEVOTHYROXINE 175 MCG TABLET PO SCH (06:01)
[2019-06-25] MEDS: INSULIN REGULAR 100 UNIT/ML SUBCUT SCH ×4 (07:52→21:15)
[2019-06-25] MEDS: LIDOCAINE 5% PATCH TRANSDERM SCH (08:48)
[2019-06-25] MEDS: METOCLOPRAMIDE 10 MG/10 ML UDCUP PO SCH ×4 (08:48→21:15)
[2019-06-25] MEDS: carvediloL 3.125 MG TABLET PO SCH ×2 (08:49→21:15)
[2019-06-25] MEDS: PANTOPRAZOLE 40 MG TABLET PO SCH (08:49)
[2019-06-25] MEDS: FLUDROCORTISONE 0.1 MG TABLET PO SCH (08:49)
[2019-06-25] MEDS: FUROSEMIDE 20 MG TABLET PO SCH (08:49)
[2019-06-25] MEDS: ASPIRIN EC 81 MG TABLET PO SCH (08:49)
[2019-06-25] MEDS: APIXABAN 5 MG TABLET PO SCH ×2 (08:49→21:15)
[2019-06-25] MEDS: POTASSIUM CHLORIDE 8 MEQ CAPSULE PO SCH ×2 (08:49→21:15)
[2019-06-25] MEDS: TAMSULOSIN 0.4 MG CAPSULE PO SCH (08:50)
[2019-06-25] MEDS: DICLOFENAC 1% GEL 100 GM TUBE TOP SCH ×3 (08:50→21:15)
[2019-06-25] MEDS: ATORVASTATIN 20 MG TABLET PO SCH (21:15)
[2019-06-25] MEDS: traZODone 50 MG TABLET PO SCH (21:15)
[2019-06-26] MEDS: ALBUTEROL/IPRATROPIUM 3 ML NEB RESP TX SCH ×4 (01:28→19:23)
[2019-06-26] MEDS: LEVOTHYROXINE 175 MCG TABLET PO SCH (06:40)
[2019-06-26] MEDS: INSULIN REGULAR 100 UNIT/ML SUBCUT SCH ×4 (08:11→23:52)
[2019-06-26] MEDS: LIDOCAINE 5% PATCH TRANSDERM SCH (09:10)
[2019-06-26] MEDS: FUROSEMIDE 20 MG TABLET PO SCH (09:11)
[2019-06-26] MEDS: carvediloL 3.125 MG TABLET PO SCH ×2 (09:11→20:42)
[2019-06-26] MEDS: METOCLOPRAMIDE 10 MG/10 ML UDCUP PO SCH ×4 (09:11→20:41)
[2019-06-26] MEDS: ASPIRIN EC 81 MG TABLET PO SCH (09:11)
[2019-06-26] MEDS: TAMSULOSIN 0.4 MG CAPSULE PO SCH (09:12)
[2019-06-26] MEDS: FLUDROCORTISONE 0.1 MG TABLET PO SCH (09:12)
[2019-06-26] MEDS: PANTOPRAZOLE 40 MG TABLET PO SCH (09:12)
[2019-06-26] MEDS: DICLOFENAC 1% GEL 100 GM TUBE TOP SCH ×3 (09:12→20:42)
[2019-06-26] MEDS: POTASSIUM CHLORIDE 8 MEQ CAPSULE PO SCH ×2 (09:12→20:41)
[2019-06-26] MEDS: APIXABAN 5 MG TABLET PO SCH ×2 (09:12→20:42)
[2019-06-26] MEDS: ACETAMINOPHEN 325 MG TABLET PO PRN (11:43)
[2019-06-26] MEDS: ATORVASTATIN 20 MG TABLET PO SCH (20:41)
[2019-06-26] MEDS: DOCUSATE SODIUM 100 MG CAPSULE PO PRN (20:41)
[2019-06-26] MEDS: traZODone 50 MG TABLET PO SCH (20:41)
[2019-06-27] MEDS: ALBUTEROL/IPRATROPIUM 3 ML NEB RESP TX SCH ×4 (00:38→19:07)
[2019-06-27] MEDS: LEVOTHYROXINE 175 MCG TABLET PO SCH (05:37)
[2019-06-27] MEDS: INSULIN REGULAR 100 UNIT/ML SUBCUT SCH ×4 (07:15→23:56)
[2019-06-27] MEDS: LIDOCAINE 5% PATCH TRANSDERM SCH (08:37)
[2019-06-27] MEDS: DICLOFENAC 1% GEL 100 GM TUBE TOP SCH ×3 (08:38→23:57)
[2019-06-27] MEDS: ASPIRIN EC 81 MG TABLET PO SCH (08:39)
[2019-06-27] MEDS: carvediloL 3.125 MG TABLET PO SCH ×2 (08:39→21:15)
[2019-06-27] MEDS: TAMSULOSIN 0.4 MG CAPSULE PO SCH (08:39)
[2019-06-27] MEDS: APIXABAN 5 MG TABLET PO SCH ×2 (08:39→21:15)
[2019-06-27] MEDS: FUROSEMIDE 20 MG TABLET PO SCH (08:39)
[2019-06-27] MEDS: POTASSIUM CHLORIDE 8 MEQ CAPSULE PO SCH ×2 (08:40→21:16)
[2019-06-27] MEDS: FLUDROCORTISONE 0.1 MG TABLET PO SCH (08:40)
[2019-06-27] MEDS: PANTOPRAZOLE 40 MG TABLET PO SCH (08:40)
[2019-06-27] MEDS: METOCLOPRAMIDE 10 MG/10 ML UDCUP PO SCH ×4 (08:40→21:15)
[2019-06-27] MEDS: ACETAMINOPHEN 325 MG TABLET PO PRN (21:14)
[2019-06-27] MEDS: traZODone 50 MG TABLET PO SCH (21:15)
[2019-06-27] MEDS: ATORVASTATIN 20 MG TABLET PO SCH (21:15)
[2019-06-28] MEDS ORDERED: SODIUM CHLORIDE 0.9% 250 ML IV ONE (00:30)
[2019-06-28] MEDS ORDERED: SODIUM CHLORIDE 0.9% 1,000 ML IV ONE (00:36)
[2019-06-28] MEDS: ALBUTEROL/IPRATROPIUM 3 ML NEB RESP TX SCH ×4 (00:39→19:24)
[2019-06-28 01:09] LABS: Calcium 8.6 MG/DL (8.5-10.1); Osmolality,Calculated 286.4 MOS/KG (273-304)
[2019-06-28 01:26] LABS: Basophils % 0.7 % (0.0-0.8); Eosinophils # 0.2 10*3/uL (0.0-0.87); Eosinophils % 2.6 % (0.00-10.9); Hematocrit 28.6 VOL% (35.7-47.0); Immature Granulocytes % 0.8 %; Immature Granulocytes Absolute 0.05 #; Lymphocytes # 2.5 10*3/uL (1.4-4.0); Lymphocytes % 40.6 % (21.3-54.2); Mean Corpuscular HGB Conc 31.5 GM/DL (32-36); Mean Platelet Volume 9.6 FL (9.6-12.0); Monocytes % 11.7 % (1.7-12.7); Neutrophils % 43.6 % (38.7-73.9); Platelet Count 242 T/CUMM (130-400); Red Blood Count 3.11 MC/CUMM (3.8-5.5); Red Cell Distribution Width 15.3 % (9.3-17.3); White Blood Count 6.1 T/CUMM (4-12)
[2019-06-28] MEDS: ACETAMINOPHEN 325 MG TABLET PO PRN ×3 (04:17→20:47)
[2019-06-28] MEDS: LEVOTHYROXINE 175 MCG TABLET PO SCH (05:30)
[2019-06-28] MEDS: INSULIN REGULAR 100 UNIT/ML SUBCUT SCH ×4 (07:40→22:48)
[2019-06-28] MEDS: METOCLOPRAMIDE 10 MG/10 ML UDCUP PO SCH ×4 (08:42→20:48)
[2019-06-28] MEDS: ASPIRIN EC 81 MG TABLET PO SCH (08:44)
[2019-06-28] MEDS: FLUDROCORTISONE 0.1 MG TABLET PO SCH (08:44)
[2019-06-28] MEDS: carvediloL 3.125 MG TABLET PO SCH ×2 (08:44→20:48)
[2019-06-28] MEDS: APIXABAN 5 MG TABLET PO SCH ×2 (08:45→20:48)
[2019-06-28] MEDS: PANTOPRAZOLE 40 MG TABLET PO SCH (08:46)
[2019-06-28] MEDS: POTASSIUM CHLORIDE 8 MEQ CAPSULE PO SCH ×2 (08:46→20:47)
[2019-06-28] MEDS: TAMSULOSIN 0.4 MG CAPSULE PO SCH (08:46)
[2019-06-28] MEDS: DICLOFENAC 1% GEL 100 GM TUBE TOP SCH ×3 (08:47→22:49)
[2019-06-28] MEDS: LIDOCAINE 5% PATCH TRANSDERM SCH (08:47)
[2019-06-28] MEDS: ATORVASTATIN 20 MG TABLET PO SCH (20:48)
[2019-06-29] MEDS: ALBUTEROL/IPRATROPIUM 3 ML NEB RESP TX SCH ×4 (00:16→19:05)
[2019-06-29 05:37] LABS: Calcium 8.7 MG/DL (8.5-10.1); Osmolality,Calculated 284.4 MOS/KG (273-304)
[2019-06-29] MEDS: LEVOTHYROXINE 175 MCG TABLET PO SCH (06:17)
[2019-06-29] MEDS: ASPIRIN EC 81 MG TABLET PO SCH (08:10)
[2019-06-29] MEDS: FLUDROCORTISONE 0.1 MG TABLET PO SCH (08:10)
[2019-06-29] MEDS: TAMSULOSIN 0.4 MG CAPSULE PO SCH (08:11)
[2019-06-29] MEDS: carvediloL 3.125 MG TABLET PO SCH ×2 (08:11→20:15)
[2019-06-29] MEDS: PANTOPRAZOLE 40 MG TABLET PO SCH (08:11)
[2019-06-29] MEDS: ACETAMINOPHEN 325 MG TABLET PO PRN ×3 (08:12→20:13)
[2019-06-29] MEDS: POTASSIUM CHLORIDE 8 MEQ CAPSULE PO SCH ×2 (08:12→21:30)
[2019-06-29] MEDS: METOCLOPRAMIDE 10 MG/10 ML UDCUP PO SCH ×4 (08:12→20:12)
[2019-06-29] MEDS: APIXABAN 5 MG TABLET PO SCH ×2 (08:12→20:12)
[2019-06-29] MEDS: INSULIN REGULAR 100 UNIT/ML SUBCUT SCH ×4 (08:14→23:04)
[2019-06-29] MEDS: LIDOCAINE 5% PATCH TRANSDERM SCH (08:15)
[2019-06-29] MEDS: DICLOFENAC 1% GEL 100 GM TUBE TOP SCH ×3 (08:24→23:04)
[2019-06-29] MEDS: DOCUSATE SODIUM 100 MG CAPSULE PO PRN (14:06)
[2019-06-29] MEDS: ATORVASTATIN 20 MG TABLET PO SCH (20:12)
[2019-06-30] MEDS: ALBUTEROL/IPRATROPIUM 3 ML NEB RESP TX SCH ×3 (00:41→12:24)
[2019-06-30] MEDS: INSULIN REGULAR 100 UNIT/ML SUBCUT SCH ×2 (07:27→13:09)
[2019-06-30] MEDS: PANTOPRAZOLE 40 MG TABLET PO SCH (08:10)
[2019-06-30] MEDS: METOCLOPRAMIDE 10 MG/10 ML UDCUP PO SCH ×2 (08:11→13:11)
[2019-06-30] MEDS: TAMSULOSIN 0.4 MG CAPSULE PO SCH (08:11)
[2019-06-30] MEDS: POTASSIUM CHLORIDE 8 MEQ CAPSULE PO SCH (08:11)
[2019-06-30] MEDS: carvediloL 3.125 MG TABLET PO SCH (08:11)
[2019-06-30] MEDS: LEVOTHYROXINE 175 MCG TABLET PO SCH (08:11)
[2019-06-30] MEDS: APIXABAN 5 MG TABLET PO SCH (08:11)
[2019-06-30] MEDS: ASPIRIN EC 81 MG TABLET PO SCH (08:11)
[2019-06-30] MEDS: LIDOCAINE 5% PATCH TRANSDERM SCH (08:12)
[2019-06-30] MEDS: DICLOFENAC 1% GEL 100 GM TUBE TOP SCH ×2 (08:12→15:08)
[2019-06-30] MEDS: ACETAMINOPHEN 325 MG TABLET PO PRN (11:16)
[2019-06-30 14:00] VITALS: BP 149/75
== END 2019-06-30 15:30 | DRG 64 ==
LOC: EDBD → EDUNIT# → N.EDINP 15:30 → N.ED 15:30 → N.4E 19:22 → SUATTDRO 06-16 10:22
PROVIDERS: ADMIT Family Medicine; ATTEND Internal Medicine